=== PATIENT | female | born 1945 | race Caucasian/White ===

== ENCOUNTER → 2017-04-17 | Outpatient (CLI) | payer MEDICARE ==
[~2017-04-17] MED LIST: ATOR1TAB19 PO; CARV12.5 PO; CITRTAB15 PO; CLAR1CHW PO; FLAX100012 PO; FLUT1SPR2; FURO20TA2 PO; Fluticasone; LISI10TA4 PO; LORA-376 PO; METF500T PO; NUCY50TA9 PO; OMEP20TA PO; SYST1SOL OU; TAPENTADOL PO; TRAZ50TA4 PO; TYLE325T5 PO; VICKOIN5 TOP; VICKS; Vitamin D3 PO; XARE20TA PO; ZYLO300T4 PO
[2017-04-17 11:48] LABS: INR 1.18
[2017-04-17 12:13] LABS: MEAN CORPUSCULAR HEMOGLOBIN 29.2 pg (27.0-33.0); MEAN CORPUSCULAR HGB CONC 33.1 g/dl (32.0-36.5); MEAN CORPUSCULAR VOLUME 88.3 fl (80.0-96.0); RED CELL DISTRIBUTION WIDTH 14.4 % (11.5-14.5); WHITE BLOOD COUNT 6.6 K/mm3 (4.0-10.0)
--- NOTE | 2017-04-17 12:13 | REP ---
CHEST, TWO VIEWS: HISTORY: Sleep apnea. COMPARISON: 04/14/2014 The lungs are clear. The cardiac silhouette is enlarged. The pulmonary vasculature is normal in appearance. Degenerative change is present in the thoracic spine. A prosthetic heart valve and cardiac pacemaker are present. IMPRESSION: Cardiomegaly. Signed by Chris Patino MD 04/17/2017 12:31 P
[2017-04-17 12:22] LABS: ALBUMIN 4.5 GM/DL (3.2-5.2); ALBUMIN/GLOBULIN RATIO 1.18 (1.00-1.93); BILIRUBIN,TOTAL 0.5 MG/DL (0.2-1.0); CALCIUM LEVEL 9.7 MG/DL (8.8-10.2); CREATININE FOR GFR 1.04 MG/DL (0.55-1.02); GLOMERULAR FILTRATION RATE 55.9 (>45); POTASSIUM SERUM 4.4 MEQ/L (3.5-5.1); TOTAL PROTEIN 8.3 GM/DL (6.4-8.2)
--- NOTE | 2017-04-18 08:48 | ECGEPIP ---
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
== END ==
LOC: M ADMPAT 09:55
PROVIDERS: ATTEND Orthopaedic Surgery
DX: Z01.818 Encounter for other preprocedural examination (principal); M17.11 Unilateral primary osteoarthritis, right knee; I51.7 Cardiomegaly; I10 Essential (primary) hypertension; G47.30 Sleep apnea, unspecified; I48.91 Unspecified atrial fibrillation; E11.9 Type 2 diabetes mellitus without complications; K21.9 Gastro-esophageal reflux disease without esophagitis; Z88.0 Allergy status to penicillin; Z95.0 Presence of cardiac pacemaker; Z79.899 Other long term (current) drug therapy

== ENCOUNTER 2017-04-30 09:35 | Inpatient (IN) | payer MEDICARE ==
[2017-04-17 11:11] VITALS: BP 128/76
--- NOTE | 2017-04-27 16:42 | HPE ---
DATE OF PLANNED ADMISSION: 04/30/2017 ATTENDING PHYSICIAN: Garett Marques MD CHIEF COMPLAINT: Right knee pain. HISTORY OF PRESENT ILLNESS: This is a pleasant 71-year-old female with progressively worsening right knee pain and stiffness. She has failed to improve with conservative treatment. She elected for surgery for her continued symptoms. She has pain with weightbearing activities and her activities of daily living. X-rays of her knee are notable for advanced osteoarthritis of the right knee joint. She is consented for a right total knee arthroplasty by Dr. Garett Marques. Medical optimization was performed by Dr. Faust. ALLERGIES: PENICILLIN CURRENT MEDICATIONS: - Trazodone HCl 50 mg at bedtime as needed - tizanidine HCl 2 mg 1 capsule three times a day as needed - allopurinol 300 mg once a day - lorazepam 0.5 mg as needed every 6 hours - Claritin 10 mg a day - lisinopril 10 mg a day - Xarelto 20 mg a day - omeprazole 20 mg a day - Voltaren gel 1% transdermal - Bengay - metronidazole 1% applied to affected area externally once a day - metformin HCl 500 mg 1 tablet with meals orally twice a day - atorvastatin calcium 10 mg once a day PAST MEDICAL HISTORY: Includes cardiomegaly, rheumatic heart disease, atrial fibrillation, gastroesophageal reflux disease, osteoporosis, diabetes, gout, hypertension, anxiety, hyperlipoproteinemia, paroxysmal atrial fibrillation, type 2 diabetes mellitus with diabetic chronic kidney disease, stage III, microalbuminuria, primary insomnia. PAST SURGICAL HISTORY: Includes hysterectomy, cholecystectomy, radiofrequency ablation, insertion of pacemaker, right total hip replacement, heart valve repair. 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 FAMILY HISTORY: Noncontributory. REVIEW OF SYSTEMS: This patient denies chest pain, heart palpitations, cough, wheezing, difficulty breathing and shortness of breath. She denies abdominal pain, nausea, vomiting, diarrhea or constipation. She denies recent upper respiratory infection or urinary tract infection symptoms. She does complain of persistent pain in her right knee and pain with weightbearing activities in the right knee. PHYSICAL EXAMINATION: General: She is well-nourished, well-developed, in no acute distress, alert female patient. She ambulates with a moderate limp favoring her right lower extremity. She is not using assistive devices. Vital signs: 5 feet 2-1/2 inch tall, weighing 192.2 pounds with a temperature of 97.9, blood pressure 130/82, pulse of 80 and respirations of 18. Neck supple without adenopathy or jugular venous distension. There were no carotid bruits appreciated upon auscultation. Lungs were clear to auscultation without rales or wheeze throughout. Heart: Regular rate and rhythm. Abdomen: Bowel sounds were present. Extremities: Examination of the knee revealed intact skin. She had decreased range of motion secondary to pain and stiffness. The limb is neurovascularly intact. LABORATORY DATA: Chest x-ray showed cardiomegaly. EKG showed normal sinus rhythm with paced ventricular complexes at 85 beats a minute. Nasal and sinus cultures showed normal yfn. Urine culture showed no clinically significant growth. CBC was within normal limits. Sedimentation rate was 20. UA was within normal limits with a specific gravity of 1.013, glucose 82, BUN 19, creatinine 1.04, sodium 136, potassium 4.4. Protime 15.1, INR 1.18. IMPRESSION: Symptomatic osteoarthritis of the right knee joint. PLAN: Consented for a right total knee arthroplasty by Dr. Garett Marques.
[~2017-04-30] VITALS: Ht 157.5 cm; Wt 96.1 kg
[~2017-04-30 09:35] MED LIST changes: -LORA-376 PO; +LORA0.5T11 PO; -METF500T PO; +METF500T13 PO; +NUCY50TA6 PO; -NUCY50TA9 PO; +TRAZ50TA11 PO; -TRAZ50TA4 PO
[2017-04-30] MEDS ORDERED: LR 1,000 ML IV ONE (09:45)
[2017-04-30] MEDS ORDERED: LR 1,000 ML IV SCH ×3 (09:45→13:45)
[2017-04-30] MEDS ORDERED: CLINDAMYCIN 600 MG in APPROPRIATE DILUENT 1 EA IV ONE (10:00)
[2017-04-30] MEDS ORDERED: fentaNYL 100 MCG/2 ML INJECTION (J3010) As Ordered ONE ×3 (11:16→12:51)
[2017-04-30] MEDS ORDERED: MIDAZOLAM INJ 2 MG/2 ML VIAL (J2250) As Ordered ONE ×2 (11:16→12:51)
[2017-04-30] MEDS ORDERED: BUPIVACAINE HCL 0.25% 30 ML VIAL As Ordered ONE (11:22)
[2017-04-30] MEDS ORDERED: ceFAZolin 1GM INJ (J0690) As Ordered ONE (11:23)
[2017-04-30] MEDS ORDERED: TRANEXAMIC ACID 100 MG/ML 10ML VIAL As Ordered ONE (11:23)
[2017-04-30] MEDS ORDERED: EPINEPHrine INJ 1 MG/ML 1ML AMP As Ordered ONE (11:23)
--- NOTE | 2017-04-30 11:33 | IPN ---
DATE OF SERVICE: 04/30/2017 The patient seen and examined. She wished to go ahead with a right total knee arthroplasty. A preoperative clearance was obtained. She understands the nature of this, the risks of bleeding, infection, damage to nerves, vessels, persistent pain, blood clots, medical problems, , among others. She wished to proceed with a right knee replacement and understands the alternatives.
[2017-04-30] MEDS ORDERED: CLINDAMYCIN INJ 900MG/6ML VIAL As Ordered ONE (11:48)
[2017-04-30] MEDS ORDERED: MIDAZOLAM INJ 2 MG/2 ML VIAL (J2250) IV ONE (12:00)
[2017-04-30] MEDS ORDERED: fentaNYL 100 MCG/2 ML INJECTION (J3010) IV ONE (12:00)
[2017-04-30] MEDS ORDERED: PHENYLephrine HCL 500 MCG/5 ML (100MCG/ML) SYRINGE (J2370) As Ordered ONE (12:35)
[2017-04-30] MEDS ORDERED: LIDOCAINE 2% INJ 100 MG/5 ML SDV (FOR ANES.) As Ordered ONE (12:51)
[2017-04-30] MEDS ORDERED: PROPOFOL 200 MG/20 ML VIAL As Ordered ONE (12:51)
[2017-04-30] MEDS ORDERED: MORPHINE 1MG/ML IN 0.9% NACL 100ML IV BAG As Ordered ONE (13:29)
[2017-04-30] MEDS ORDERED: PERCOCET 5MG/325MG TAB PO PRN (13:45)
[2017-04-30] MEDS ORDERED: HYDROmorphone HCL 1 MG/ML SYRINGE (J1170) IV PRN (13:45)
[2017-04-30] MEDS ORDERED: fentaNYL 100 MCG/2 ML INJECTION (J3010) IV PRN (13:45)
[2017-04-30] MEDS ORDERED: FLEET ENEMA PR PRN (13:45)
[2017-04-30] MEDS ORDERED: ACETAMINOPHEN TAB 650MG DOSE (2X325MG) PO PRN (13:45)
[2017-04-30] MEDS ORDERED: ONDANSETRON 4MG/2ML VIAL (J2405) IV PRN ×3 (13:45→14:00)
[2017-04-30] MEDS ORDERED: MORPHINE 1MG/ML IN 0.9% NACL 100ML IV BAG IV PRN (14:00)
[2017-04-30] MEDS ORDERED: NALBUPHINE HCL 10 MG/ML AMP (J2300) IV PRN (14:00)
[2017-04-30] MEDS ORDERED: PATIENT IS CURRENTLY ON AN ON-Q PAIN BUSTER PAIN RELIEF SYSTEM XX SCH (14:00)
[2017-04-30] MEDS ORDERED: EPIDURAL/PCA KEYS XX PRN (14:00)
[2017-04-30] MEDS ORDERED: diphenhydrAMINE INJ 50MG/ML VIAL (J1200) IV PRN (14:00)
[2017-04-30] MEDS ORDERED: NALOXONE INJ 0.4 MG/1 ML VIAL (J2310) IV PRN (14:00)
[2017-04-30] MEDS ORDERED: LIDOCAINE 1% MDV 20ML VIAL ONE (14:01)
[2017-04-30] MEDS ORDERED: ROPIvacaine 0.5% 30 ML INJECTION (J2795) ONE (14:01)
[2017-04-30] MEDS ORDERED: dexameTHASONE 10 MG/1 ML VIAL PRES.FREE (J1100) ONE (14:01)
[2017-04-30 14:45] VITALS: BP 139/87
[2017-04-30 15:15] VITALS: BP 136/85
[2017-04-30 16:15] VITALS: BP 135/82
[2017-04-30 17:15] VITALS: BP 126/78
[2017-04-30] MEDS: RIVAROXABAN 20 MG TAB (XARELTO) PO SCH (17:45)
[2017-04-30 18:15] VITALS: BP 119/70
[2017-04-30] MEDS ORDERED: DEXTROSE 50% 50 ML SYRINGE IV PRN (18:45)
[2017-04-30] MEDS ORDERED: POLYVINYL ALCOHOL OPHTH SOLN 15 ML(LIQUITEARS) OU PRN (18:45)
[2017-04-30] MEDS ORDERED: FLUTICASONE PROP 0.05% NASAL SPRAY 16 GM (FLONASE) PRN (18:45)
[2017-04-30] MEDS ORDERED: OMEPRAZOLE 20 MG CAP PO PRN (18:45)
--- NOTE | 2017-04-30 21:06 | RO ---
DATE OF PROCEDURE: 04/30/2017 PREOPERATIVE DIAGNOSIS: Right knee osteoarthritis. POSTOPERATIVE DIAGNOSIS: Right knee osteoarthritis. PROCEDURE: Right total knee arthroplasty using a PFC rotating platform cruciate retaining size 3 femur, size 3 tibia, size 10 polyethylene, 35 patellar button. SURGEON: Dr. Garett Marques AUTOMOTIVE PARTS COORDINATOR: Ronald Mares ANESTHESIA: Spinal. ESTIMATED BLOOD LOSS: 50 mL. COMPLICATIONS: None. INDICATIONS: This is a 71-year woman who has had gradually worsening right knee pain with severe arthritis. She failed conservative management and wished to go ahead with surgical treatment. She understood the nature of the procedure, the risks of bleeding, infection, damage to nerves, vessels, persistent pain, wear, loosening, blood clots, medical problems, among others, and she understood the alternatives to knee replacement. DESCRIPTION OF PROCEDURE: The patient was taken to the operating room, placed in supine position after spinal anesthesia was induced. The right lower extremity was prepped and draped in the usual sterile fashion. A tourniquet was inflated. Time-out was performed. I then created a longitudinal incision over the anterior aspect of the knee, sharp dissection was carried down through subcutaneous tissue, controlled hemostasis with the cautery, performed a medial parapatellar arthrotomy and everted the patella, flexed the knee up. I then used the canal initiating reamer followed by the intramedullary guide on the femoral side set a 10 mm cut, 5 degrees of valgus. This was pinned in place by the junior assistant manager and then the distal femoral cut was made while I protected soft tissues. I then sized the femur to be a size 3, made the holes in the end of the femur with the external rotation guide and pinned the 4-in-[address]. The remaining four cuts were then made, protecting soft tissues. I then freed up the posterior cruciate ligament (PCL) and prepared the tibia. Tibial alignment guide was placed, the appropriate amount of posterior slope and valgus. This was pinned in place about 2 mm off the low side which is 10 mm off the high side. The external alignment guide was used to make sure that this was appropriate alignment and then the cut was made removing the bone, protecting soft tissues. We then used the financial services specialist to remove soft tissue and osteophytes from either side of the knee. The tibia was prepared with a size 3 tray, which was pinned in place. I then drilled, broached. Placed the trial polyethylene size 10 x 3, impacted in the femur and put the knee through range of motion. Excellent alignment and stability were noted. I was very pleased with the alignment and soft tissue balance. The patella was then freehand cut removing about 7 mm of bone. I then sized to be a 35. We then made the drill holes, placed the patellar button and put this through a range of motion. The patella tracked very nicely. Overall the components appeared excellent. We then drilled the end of the femur, removed the trial components, the junior assistant manager prepared the bone cement in the modern technique. We then irrigated and dried the bony surfaces, cemented on the tibial component, removed excess bone cement, placed the polyethylene, cemented on the femoral component and removed excess bone cement, and cemented on the polyethylene and held this in place as the cement hardened. I irrigated, put some TXA solution in and then we closed the deep layer after the cement had hardened with #1 Vicryl suture in an interrupted fashion. The remaining deep layer was closed in a watertight fashion using the Stratafix suture, single arm starting in the midpoint and working in each direction. Excellent closure was noted. We irrigated, closed the subcu with #2-0 Vicryl and the skin with jakob. The PainBuster catheter was inserted and primed through the superolateral aspect of the knee in the usual fashion. Sterile dressing was applied. Tourniquet had been deflated. She was taken to recovery room in stable condition. There were no known complications. The plan will be routine postop.
[2017-04-30] MEDS: LORATADINE 5 MG HALF-TAB PO SCH (21:31)
[2017-04-30] MEDS: ALLOPURINOL 300 MG TAB PO SCH (21:32)
[2017-04-30] MEDS: CLINDAMYCIN 600 MG in APPROPRIATE DILUENT 1 EA IV SCH (21:33)
[2017-04-30] MEDS: ATORVASTATIN 10 MG TAB PO SCH (21:34)
[2017-04-30] MEDS: LORazepam 0.5 MG TAB PO SCH (21:34)
[2017-04-30] MEDS: HumaLOG INSULIN (NovoLOG) PER UNIT SC SCH (21:46)
[2017-04-30 22:00] VITALS: BP 132/65
[2017-05-01 02:00] VITALS: BP 122/72
--- NOTE | 2017-05-01 02:00 | CR ---
DATE OF CONSULTATION: 04/30/2017 MUSHROOM FARMER: Dr. Marques. PRIMARY CARE PROVIDER: NELIA Ac. CHIEF COMPLAINT: Right knee pain. HISTORY OF PRESENT ILLNESS: Patient is a 71-year-old female with history of osteoarthritis of the knee. She is status post right knee arthroplasty performed by Dr. Marques, which she tolerated appropriately. I am being consulted for medical management of her hypertension, diabetes and heart disease. Patient's only complaint is mild pain of the right knee. She denies chest pain, shortness of breath, fever, chills, nausea, vomiting, diarrhea or constipation, headache, blurry vision. REVIEW OF SYSTEMS: 10-point systems assessed are negative except listed above in history of present illness (HPI). PAST MEDICAL HISTORY: Includes: 1. Hypertension. 2. Ajx-inxieoy-sbukdujoj diabetes mellitus. 3. Gout. 4. Rheumatic heart disease. 5. Atrial fibrillation on Coumadin. 6. Gastroesophageal reflux disease (GERD). 7. Osteoporosis. 8. Anxiety. 9. Dyslipidemia. 10. Chronic kidney disease stage III. 11. Cardiomegaly. PAST SURGICAL HISTORY: Includes: 1. Hysterectomy. 2. Cholecystectomy. 3. Radio frequency ablation. 4. Insertion of pacemaker. 5. Right total hip replacement. 6. Right valve repair. FAMILY HISTORY: Noncontributory. SOCIAL HISTORY: She never smoked. Denies alcohol abuse or illicit drug use. She is and lives with her and two pets, a dog and a cat. 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 ALLERGIES TO MEDICATIONS: Include PENICILLIN, RISPERIDONE and TRAMADOL. LIST OF MEDICATIONS: Includes: - trazodone 50 mg at bedtime - allopurinol 300 mg once a day - lorazepam 0.5 mg every 6 hours as needed for anxiety - Claritin 10 mg once a day - tizanidine 2 mg capsules three times a day as needed - lisinopril 10 mg once a day - Xarelto 20 mg once daily - omeprazole 20 mg once a day - Voltaren gel - Bengay - metformin 500 mg twice a day with meals - atorvastatin 10 mg once daily PHYSICAL EXAMINATION: VITAL SIGNS: Blood pressure 119/70, pulse 95, respiratory rate 18, oxygen saturation 97% on 2 liters of oxygen, temperature 98.5 degrees Fahrenheit. GENERAL: Patient is alert, oriented to person, place, time, and circumstance. She is in no distress. HEENT: Pupils are equal, round and reactive to light. Extraocular muscles are intact. Anicteric sclerae. Mucous membranes moist. Neck is supple, nontender to palpation with no adenopathy. CARDIOVASCULAR SYSTEM: S1, S2 present. Rate is irregular. RESPIRATORY SYSTEM: Lungs are clear to auscultation bilaterally. GASTROINTESTINAL: Abdomen is soft, nontender, nondistended. Bowel sounds are normal. MUSCULOSKELETAL SYSTEM: No edema, cyanosis. Right knee is wrapped in a Band-Aid. Patient has decreased range of motion on the right leg. The Band-Aid is clean and dry. SKIN: War, dry without rash. NEUROLOGIC: Nonfocal findings. LABORATORIES: Still pending. ASSESSMENT: Includes: 1. Right knee pain. 2. Ohh-pqctdde-qisthskis diabetes mellitus. 3. History of hypertension, stable. 4. History of anxiety, stable. 5. History of gastroesophageal reflux disease (GERD). 6. History of atrial fibrillation, stable heart rate. PLAN: Will monitor patient's fingersticks before food, nightly, cover with sliding-scale insulin. Holding metformin for now until patient is discharged. Resume the needed home medications. Thank you for considering us for co-management of this patient.
[2017-05-01] MEDS: CLINDAMYCIN 600 MG in APPROPRIATE DILUENT 1 EA IV SCH (04:09)
[2017-05-01 06:00] VITALS: BP 125/71
[2017-05-01 06:29] LABS: MEAN CORPUSCULAR HEMOGLOBIN 29.3 pg (27.0-33.0); MEAN CORPUSCULAR HGB CONC 32.5 g/dl (32.0-36.5); MEAN CORPUSCULAR VOLUME 90.4 fl (80.0-96.0); RED CELL DISTRIBUTION WIDTH 14.4 % (11.5-14.5); WHITE BLOOD COUNT 13.9 K/mm3 (4.0-10.0)
[2017-05-01] MEDS ORDERED: PERCOCET 5MG/325MG TAB PO PRN (06:45)
[2017-05-01] MEDS ORDERED: ONDANSETRON 4 MG TAB (S0181) PO PRN (06:45)
[2017-05-01] MEDS: HumaLOG INSULIN (NovoLOG) PER UNIT SC SCH ×4 (08:06→21:00)
[2017-05-01] MEDS: PERCOCET 5MG/325MG TAB PO PRN ×4 (08:08→20:07)
--- NOTE | 2017-05-01 08:56 | REP ---
Clinical: Status post knee replacement. Technique AP and cross-table lateral views. Findings: The patient is status post right knee replacement with normal positioning and appearance to the femoral and tibial components. Overlying postsurgical changes appreciated. Impression: Status post right knee replacement. Signed by Mayur Tellez MD 05/01/2017 08:47 A
[2017-05-01] MEDS: LISINOPRIL 10 MG TAB PO SCH (09:19)
[2017-05-01] MEDS: FUROSEMIDE 20 MG TAB PO SCH (09:19)
[2017-05-01] MEDS: MOM 30ML SUSPENSION UDC PO SCH (09:20)
[2017-05-01] MEDS: MIRALAX *UNIT DOSE* 17GM PACKET PO SCH (09:20)
[2017-05-01] MEDS: ALLOPURINOL 300 MG TAB PO SCH (09:20)
[2017-05-01] MEDS: SENOKOT S TAB PO SCH ×2 (09:20→20:06)
[2017-05-01] MEDS: LORATADINE 5 MG HALF-TAB PO SCH (09:20)
[2017-05-01 09:45] LABS: CALCIUM LEVEL 8.3 MG/DL (8.8-10.2); CREATININE FOR GFR 1.02 MG/DL (0.55-1.02); GLOMERULAR FILTRATION RATE 57.2 (>45); POTASSIUM SERUM 4.3 MEQ/L (3.5-5.1)
[2017-05-01 14:00] VITALS: BP 124/76
--- NOTE | 2017-05-01 15:30 | IPNPDOC ---
Subjective Date Seen The patient was seen on 05/01/17. Subjective Chief Complaint/HPI The patient is a 71-year-old female admitted with a reason for visit of Right Knee Arthritis. General: Denies: Chills, Night Sweats Constitutional: Denies: Chills, Fever Eyes: Denies: Pain, Vision change ENT: Denies: Head Aches, Ear Pain Skin: Denies: Rash, Lesions Pulmonary: Denies: Dyspnea, Cough Cardiovascular: Denies: Chest Pain, Palpitations Gastrointestinal: Denies: Nausea, Vomiting Genitourinary: Denies: Dysuria, Frequency Hematologic: Denies: Bruising, Bleeding Excessively Objective Physical Examination General Exam: Positive: Alert, Cooperative, No Acute Distress ENT Exam: Positive: Atraumatic, Mucous membr. moist/pink Neck Exam: Negative: JVD Chest Exam: Positive: Clear to auscultation, Normal air movement Heart Exam: Positive: Rate Normal, Normal S1, Normal S2 Abdomen Exam: Positive: Soft, Negative: Tenderness Extremity Exam: Positive: Other (right knee noted to be wrapped in surgical dressing, range of motion limited secondary to recent surgery, neurovascularly intact distally) Neuro Exam: Positive: Strength at 5/5 X4 ext Assessment /Plan Plan/VTE VTE Prophylaxis Ordered?: Yes Plan Status post right knee replacement Pain management as per primary team History of atrial fibrillation rate, controlled Continue Xarelto Hypertension, stable Continue lisinopril, Lasix Dyslipidemia Continue statin GERD Continue PPI Diabetes mellitus Insulin sliding scale Gout continue allopurinol VS, I&O, 24H, Fishbone Vital Signs/I&O Vital Signs Date Time Temp Pulse Resp B/P (MAP) Pulse Ox O2 Delivery O2 Flow Rate FiO2 05/01/17 13:31 16 05/01/17 09:19 126/58 05/01/17 08:00 96 Room Air 05/01/17 06:00 97.8 97 2.0 I&O- Last 24 Hours up to 6 AM 05/01/17 06:00 Intake Total 3220 ml Output Total 1250 ml Balance 1970 ml Laboratory Data 24H LABS Laboratory Tests 2 05/01/17 08:36: Anion Gap 5L, Glomerular Filtration Rate 57.2, Blood Urea Nitrogen 20H, Creatinine 1.02, Sodium Level 141, Potassium Level 4.3, Chloride Level 109H, Carbon Dioxide Level 27, Calcium Level 8.3L CBC/BMP Laboratory Tests 05/01/17 06:15 Red Blood Count 3.83 L, Mean Corpuscular Volume 90.4, Mean Corpuscular Hemoglobin 29.3, Mean Corpuscular Hemoglobin Concent 32.5, Red Cell Distribution Width 14.4 05/01/17 08:36 Calcium Level 8.3 L ASHLEY SANCHEZ MD May 01, 2017 15:30
[2017-05-01] MEDS: RIVAROXABAN 20 MG TAB (XARELTO) PO SCH (17:28)
[2017-05-01] MEDS ORDERED: RIVAROXABAN 20 MG TAB (XARELTO) PO SCH (18:00)
[2017-05-01] MEDS: ATORVASTATIN 10 MG TAB PO SCH (20:06)
[2017-05-01 22:00] VITALS: BP 161/65
[2017-05-01] MEDS: LORazepam 0.5 MG TAB PO SCH (22:11)
[2017-05-02] MEDS: PERCOCET 5MG/325MG TAB PO PRN ×4 (00:08→17:50)
[2017-05-02] MEDS ORDERED: MORPHINE 2 MG/ML 1ML SYRINGE IV ONE (02:00)
[2017-05-02 06:00] VITALS: BP 153/80
[2017-05-02 06:36] LABS: MEAN CORPUSCULAR HEMOGLOBIN 28.4 pg (27.0-33.0); MEAN CORPUSCULAR HGB CONC 31.9 g/dl (32.0-36.5); MEAN CORPUSCULAR VOLUME 88.9 fl (80.0-96.0); RED CELL DISTRIBUTION WIDTH 14.8 % (11.5-14.5); WHITE BLOOD COUNT 5.9 K/mm3 (4.0-10.0)
[2017-05-02] MEDS ORDERED: diphenhydrAMINE 25 MG CAP PO PRN (07:00)
[2017-05-02] MEDS: HumaLOG INSULIN (NovoLOG) PER UNIT SC SCH ×4 (07:30→20:53)
[2017-05-02] MEDS: MORPHINE 15 MG SA TAB PO SCH ×2 (08:41→20:54)
[2017-05-02] MEDS ORDERED: CelecoXIB (CeleBREX) 100 MG CAP PO ONE (08:45)
[2017-05-02] MEDS: ALLOPURINOL 300 MG TAB PO SCH (08:47)
[2017-05-02] MEDS: LISINOPRIL 10 MG TAB PO SCH (08:49)
[2017-05-02] MEDS: LORATADINE 5 MG HALF-TAB PO SCH (08:49)
[2017-05-02] MEDS ORDERED: PNEUMOCOCCAL VACCINE 0.5ML SYRINGE(90732) PNEUMOVAX 23 IM ONE (09:00)
[2017-05-02 09:24] VITALS: BP 124/67
[2017-05-02] MEDS: MIRALAX *UNIT DOSE* 17GM PACKET PO SCH (10:14)
[2017-05-02] MEDS: MOM 30ML SUSPENSION UDC PO SCH (10:14)
[2017-05-02] MEDS: SENOKOT S TAB PO SCH ×2 (10:14→20:52)
--- NOTE | 2017-05-02 11:21 | IPNPDOC ---
Subjective Date Seen The patient was seen on 05/02/17. Subjective Chief Complaint/HPI The patient is a 71-year-old female admitted with a reason for visit of Right Knee Arthritis. General: Denies: Chills, Night Sweats Constitutional: Denies: Chills, Fever Eyes: Denies: Pain, Vision change ENT: Denies: Head Aches, Ear Pain Skin: Denies: Rash, Lesions Pulmonary: Denies: Dyspnea, Cough Cardiovascular: Denies: Chest Pain, Palpitations Gastrointestinal: Denies: Nausea, Vomiting Genitourinary: Denies: Dysuria, Frequency Hematologic: Denies: Bruising, Bleeding Excessively Objective Physical Examination General Exam: Positive: Alert, Cooperative, No Acute Distress ENT Exam: Positive: Atraumatic, Mucous membr. moist/pink Neck Exam: Negative: JVD Chest Exam: Positive: Clear to auscultation, Normal air movement Heart Exam: Positive: Rate Normal, Normal S1, Normal S2 Abdomen Exam: Positive: Soft, Negative: Tenderness Extremity Exam: Positive: Other (right knee noted to be wrapped in surgical dressing, range of motion limited secondary to recent surgery, neurovascularly intact distally) Neuro Exam: Positive: Strength at 5/5 X4 ext Assessment /Plan Plan/VTE VTE Prophylaxis Ordered?: Yes Plan Status post right knee replacement Pain management as per primary team History of atrial fibrillation rate, controlled Continue Xarelto Hypertension, stable Continue lisinopril, Lasix Dyslipidemia Continue statin GERD Continue PPI Diabetes mellitus Insulin sliding scale Gout continue allopurinol VS, I&O, 24H, Fishbone Vital Signs/I&O Vital Signs Date Time Temp Pulse Resp B/P (MAP) Pulse Ox O2 Delivery O2 Flow Rate FiO2 05/02/17 09:24 99.7 88 14 124/67 (86) 97 Room Air 05/01/17 06:00 2.0 I&O- Last 24 Hours up to 6 AM 05/02/17 06:00 Intake Total 600 ml Output Total 900 ml Balance -300 ml Laboratory Data 24H LABS Laboratory Tests 2 05/01/17 12:00: Bedside Glucose (Misc Panel) 97 05/01/17 16:55: Bedside Glucose (Misc Panel) 114 CBC/BMP Laboratory Tests 05/02/17 06:09 Red Blood Count 3.76 L, Mean Corpuscular Volume 88.9, Mean Corpuscular Hemoglobin 28.4, Mean Corpuscular Hemoglobin Concent 31.9 L, Red Cell Distribution Width 14.8 H ASHLEY SANCHEZ MD May 02, 2017 11:21
[2017-05-02 14:00] VITALS: BP 126/71
[2017-05-02] MEDS: RIVAROXABAN 20 MG TAB (XARELTO) PO SCH (17:52)
[2017-05-02] MEDS: ATORVASTATIN 10 MG TAB PO SCH (20:52)
[2017-05-02] MEDS: LORazepam 0.5 MG TAB PO SCH (20:52)
[2017-05-02] MEDS ORDERED: NORTRIPTYLINE 10 MG CAP PO SCH (21:00)
[2017-05-02 22:00] VITALS: BP 119/65
[2017-05-03] MEDS: PERCOCET 5MG/325MG TAB PO PRN ×3 (04:43→14:00)
[2017-05-03 06:00] VITALS: BP 117/61
[2017-05-03] MEDS: HumaLOG INSULIN (NovoLOG) PER UNIT SC SCH ×2 (07:30→12:19)
[2017-05-03] MEDS ORDERED: PERC5TAB12 PO (08:20)
[2017-05-03] MEDS ORDERED: MORP15TASA PO (08:20)
[2017-05-03] MEDS: MOM 30ML SUSPENSION UDC PO SCH (08:44)
[2017-05-03] MEDS: MIRALAX *UNIT DOSE* 17GM PACKET PO SCH (08:44)
[2017-05-03] MEDS: MORPHINE 15 MG SA TAB PO SCH (08:45)
[2017-05-03 08:46] VITALS: BP 117/61
[2017-05-03] MEDS: LISINOPRIL 10 MG TAB PO SCH (08:46)
[2017-05-03] MEDS: FUROSEMIDE 20 MG TAB PO SCH (08:46)
[2017-05-03] MEDS: LORATADINE 5 MG HALF-TAB PO SCH (08:46)
[2017-05-03] MEDS: SENOKOT S TAB PO SCH (08:46)
[2017-05-03] MEDS: ALLOPURINOL 300 MG TAB PO SCH (08:46)
--- NOTE | 2017-05-03 11:40 | IPNPDOC ---
Subjective Date Seen The patient was seen on 05/03/17. Subjective Chief Complaint/HPI The patient is a 71-year-old female admitted with a reason for visit of Right Knee Arthritis. General: Denies: Chills, Night Sweats Constitutional: Denies: Chills, Fever Eyes: Denies: Pain, Vision change ENT: Denies: Head Aches, Ear Pain Skin: Denies: Rash, Lesions Pulmonary: Denies: Dyspnea, Cough Cardiovascular: Denies: Chest Pain, Palpitations Gastrointestinal: Denies: Nausea, Vomiting, Abdominal Pain Genitourinary: Denies: Dysuria, Frequency Hematologic: Denies: Bruising, Bleeding Excessively Objective Physical Examination General Exam: Positive: Alert, Cooperative, No Acute Distress ENT Exam: Positive: Atraumatic, Mucous membr. moist/pink Neck Exam: Negative: JVD Chest Exam: Positive: Clear to auscultation, Normal air movement Heart Exam: Positive: Rate Normal, Normal S1, Normal S2 Abdomen Exam: Positive: Soft, Negative: Tenderness Extremity Exam: Positive: Other (right knee noted to be wrapped in surgical dressing, range of motion limited secondary to recent surgery, neurovascularly intact distally) Neuro Exam: Positive: Strength at 5/5 X4 ext Assessment /Plan Plan/VTE VTE Prophylaxis Ordered?: Yes Plan Status post right knee replacement Pain management as per primary team History of atrial fibrillation rate, controlled Continue Xarelto Hypertension, stable Continue lisinopril, Lasix Dyslipidemia Continue statin GERD Continue PPI Diabetes mellitus Insulin sliding scale Gout continue allopurinol VS, I&O, 24H, Fishbone Vital Signs/I&O Vital Signs Date Time Temp Pulse Resp B/P (MAP) Pulse Ox O2 Delivery O2 Flow Rate FiO2 05/03/17 10:17 18 05/03/17 10:17 96 Room Air 05/03/17 08:46 117/61 05/03/17 06:00 97.6 86 05/01/17 06:00 2.0 I&O- Last 24 Hours up to 6 AM 05/03/17 06:00 Intake Total 1500 ml Output Total 3010 ml Balance -1510 ml Laboratory Data 24H LABS Laboratory Tests 2 05/02/17 11:50: Bedside Glucose (Misc Panel) 104 05/02/17 16:52: Bedside Glucose (Misc Panel) 109 05/02/17 20:44: Bedside Glucose (Misc Panel) 123H 7/2/17 05:48: Bedside Glucose (Misc Panel) 101 ASHLEY SANCHEZ MD May 03, 2017 11:40
[2017-05-03] MEDS ORDERED: ROPIvacaine 0.5% 30 ML INJECTION (J2795) ONE (14:44)
[2017-05-03] MEDS ORDERED: dexameTHASONE 10 MG/1 ML VIAL PRES.FREE (J1100) ONE (14:44)
[2017-05-03] MEDS ORDERED: LIDOCAINE 1% MDV 20ML VIAL ONE (14:44)
--- NOTE | 2017-05-06 09:33 | DSES ---
DATE OF ADMISSION: 04/30/2017 DATE OF DISCHARGE: 05/03/2017 ADMITTING DIAGNOSIS: Symptomatic right knee osteoarthritis. DISCHARGE DIAGNOSIS: Status post right total knee arthroplasty. HISTORY OF PRESENT ILLNESS: This is a pleasant 71-year-old female with continuing symptomatic right knee osteoarthritis. She has consented for a right total knee arthroplasty per Dr. Garett Marques. Medical optimization per Dr. Shelton. X-rays are consistent with advanced osteoarthritis. OPERATION PERFORMED: Right total knee arthroplasty. HOSPITAL COURSE: The patient underwent right total knee arthroplasty under spinal anesthesia on 04/30/2017, uneventfully, and was returned to recovery comfortable. Our hospital team decided to discharge the patient on 05/03/2017 with the following instructions. Weight bearing as tolerated right lower extremity with walker. Thromboembolic deterrent (JENNIFER) stockings times 30 days and deep vein thrombosis (DVT) prophylaxis per instruction. Diet regular. Percocet as needed pain. Optifoam dressing change in 4-7 days time. Followup at [facility] ([facility] [place]) 12-14 days for wound check, staple removal. The patient is encouraged to contact our office sooner with increased pain, numbness or tingling down the lower extremity, redness, drainage, bleeding, fever greater than 101 or further concerns. SAUL
== END 2017-05-03 14:45 | disposition home health service (06) | DRG 470 ==
LOC: M OR 09:35 → M MS5PR 14:35
PROVIDERS: ADMIT Orthopaedic Surgery; ATTEND Orthopaedic Surgery
PROC: 0SRC0J9 Replacement of Right Knee Joint with Synthetic Substitute, Cemented, Open Approach (ICD-10-PCS; principal; 2017-04-30 12:15)
DX: M17.11 Unilateral primary osteoarthritis, right knee (principal); I48.0 Paroxysmal atrial fibrillation; K21.9 Gastro-esophageal reflux disease without esophagitis; M81.0 Age-related osteoporosis without current pathological fracture; E11.22 Type 2 diabetes mellitus with diabetic chronic kidney disease; I12.9 Hypertensive chronic kidney disease with stage 1 through stage 4 chronic kidney disease, or unspecified chronic kidney disease; F41.9 Anxiety disorder, unspecified; M10.9 Gout, unspecified; G47.00 Insomnia, unspecified; N18.3 Chronic kidney disease, stage 3 (moderate); I51.7 Cardiomegaly; Z79.84 Long term (current) use of oral hypoglycemic drugs; Z79.01 Long term (current) use of anticoagulants; Z79.899 Other long term (current) drug therapy; Z88.0 Allergy status to penicillin; Z96.641 Presence of right artificial hip joint; Z95.0 Presence of cardiac pacemaker; Z88.8 Allergy status to other drugs, medicaments and biological substances

== ENCOUNTER → 2018-04-14 | Outpatient (CLI) | payer MEDICARE | LOC: M RAD 13:48 | DX: M51.36 Other intervertebral disc degeneration, lumbar region (principal); M48.061 Spinal stenosis, lumbar region without neurogenic claudication | CPT/HCPCS: 72131 ==

== ENCOUNTER → 2018-04-21 | Outpatient (REF) | payer MEDICARE ==
[2018-04-21 16:09] LABS: INR 1.04; PROTHROMBIN TIME 13.7 SECONDS (12.4-14.5)
== END ==
LOC: M LABDRAW1 14:04
DX: Z79.01 Long term (current) use of anticoagulants (principal)
CPT/HCPCS: 85610

== ENCOUNTER → 2019-04-18 | Outpatient (CLI) | payer MEDICARE ==
[~2019-04-18] MED LIST changes: -CLAR1CHW PO; +CLAR1CHW2 PO; +MORP15TASA PO; +NUCY50TA19 PO; -NUCY50TA6 PO; +PERC5TAB12 PO; +TRAZ-252 PO; -TRAZ50TA11 PO; -ZYLO300T4 PO; +ZYLO300T6 PO
[2019-04-18 09:40] LABS: HEMOGLOBIN 13.8 g/dl (12.0-15.5); MEAN CORPUSCULAR HEMOGLOBIN 28.8 pg (27.0-33.0); MEAN CORPUSCULAR HGB CONC 32.1 g/dl (32.0-36.5); MEAN CORPUSCULAR VOLUME 89.8 fl (80.0-96.0); PLATELET COUNT, AUTOMATED 281 10^3/uL (150-450); RED BLOOD COUNT 4.79 10^6/uL (4.00-5.40); WHITE BLOOD COUNT 7.9 10^3/uL (4.0-10.0)
[2019-04-18 09:47] LABS: INR 1.36
[2019-04-18 09:57] LABS: ALT/SGPT 31 U/L (12-78); BILIRUBIN,TOTAL 0.3 MG/DL (0.2-1.0); BLOOD UREA NITROGEN 22 MG/DL (7-18); CALCIUM LEVEL 9.5 MG/DL (8.8-10.2); CARBON DIOXIDE LEVEL 24 MEQ/L (21-32); CHLORIDE LEVEL 105 MEQ/L (98-107); CREATININE FOR GFR 0.86 MG/DL (0.55-1.30); GLOMERULAR FILTRATION RATE > 60.0 (>39); GLUCOSE, FASTING 89 MG/DL (70-100); POTASSIUM SERUM 4.4 MEQ/L (3.5-5.1); SODIUM LEVEL 137 MEQ/L (136-145)
--- NOTE | 2019-04-18 10:04 | REP ---
CHEST X-RAY: Two views. HISTORY: Preop. Left hip arthritis. COMPARISON STUDY: April 17, 2017. FINDINGS: A multi-lead pacemaker remains in the right heart via the left side. The patient is status post cardiac valve replacement. The heart is borderline in size. Cardiothoracic ratio measures 52.3%. Pulmonary vasculature is not increased. Pleural angles are sharp. No infiltrate is seen. There are advanced degenerative changes in the shoulders. Degenerative disc changes are noted in the thoracic spine. There are clips in right upper quadrant. IMPRESSION: Cardiomegaly with pacemaker and cardiac valve replacement. Advanced osteoarthritis of the shoulders. Otherwise no acute disease. Electronically Signed by Venkatesh Tan MD 04/18/2019 10:27 A
[2019-04-18 10:06] LABS: ERYTHROCYTE SEDIMENTATION RATE 36 mm/hr (0-30)
--- NOTE | 2019-04-18 13:12 | ECGEPIP ---
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
== END ==
LOC: M LAB 08:09
PROVIDERS: ATTEND Orthopaedic Surgery
DX: Z01.818 Encounter for other preprocedural examination (principal); M16.12 Unilateral primary osteoarthritis, left hip; Z95.0 Presence of cardiac pacemaker

== ENCOUNTER → 2019-04-26 | Outpatient (REF) | payer MEDICARE ==
[~2019-04-26] MED LIST changes: +BENGGEL2 TOP; +BIOT50004 PO; +DICL1GEL3 TOP; +METR1GEL4 EX; +MULTCAP PO; +NYST50SS SS; +ORPH100T2 PO; +TYLE650T38 PO; +VITA200021 PO
== END ==
LOC: M SFHCLERA 12:10
PROVIDERS: ATTEND Physician Assistant
DX: J02.9 Acute pharyngitis, unspecified (principal)
CPT/HCPCS: 87070; 87880; G0463

== ENCOUNTER 2019-05-18 06:32 | Inpatient (IN) | payer MEDICARE ==
--- NOTE | 2019-05-16 16:28 | HPE ---
DATE OF ADMISSION: 05/18/2019 CHIEF COMPLAINT: Left hip pain. HISTORY OF PRESENT ILLNESS: Farrah is a pleasant, 73-year-old female with progressively worsening left hip pain and stiffness. She has failed to improve with conservative treatment. She has elected for surgery for her continued symptoms. She has pain with weightbearing activities and her activities of daily living. X-rays of her hip are notable for advanced osteoarthritis of the left hip joint. She has consented for a left total hip arthroplasty by Dr. Garett Marques. Medical optimization was performed by Dr. Shelton. ALLERGIES: PENICILLIN. CURRENT MEDICATIONS: - metformin 500 mg twice a day - allopurinol 300 mg every day - lisinopril 20 mg a day - lorazepam 0.5 mg one by mouth once a day as needed - Lasix 20 mg every day as directed - orphenadrine citrate 100 mg one by mouth every 12 hours - Systane 0.4-0.3% 1 drop in both eyes every night at bedtime - Tylenol 8 hours 650 mg as needed - Biotin 5000 mcg once a day - flaxseed oil 1000 mg twice a day - Centrum daily multivitamin - vitamin D3 super strength one every day - Citracal Max 315/250 mg every day - Flonase 50 mcg per actuation 2 sprays per nostril once a day - Tylenol #3 as needed - enoxaparin sodium 150 mg/mL inject 100 mg every 24 hours to the affected area as directed 1 gram three times a day PAST MEDICAL HISTORY: Includes high blood pressure, diabetes, and heart disease. PAST SURGICAL HISTORY: Includes gallbladder removal, total hysterectomy, right hip replacement and knee replacement. SOCIAL HISTORY: This patient is retired. Does not smoke. Does not drink alcohol. FAMILY HISTORY: Noncontributory. REVIEW OF SYSTEMS: This patient denies chest pain, heart palpitations, cough, wheezing, difficulty breathing, and shortness of breath. Denies abdominal pain, nausea, vomiting, diarrhea, or constipation. She denies recent upper respiratory infection or urinary tract infection symptoms. She does complain of persistent pain in the left hip. PHYSICAL EXAM: General: She is a well-nourished, well-developed, in no acute distress, alert female patient. She ambulates with a moderate limp favoring her left lower extremity. She is not using assistive devices. Vital signs: She is 63 inches tall, weighs 190.6 pounds with a temperature of 98.2, blood pressure 132/60, pulse of 77, and respirations of 14. Neck was supple without adenopathy or jugular venous distension. Lungs were clear to auscultation without rales or wheeze. Heart: Regular rate and rhythm. Abdomen: Bowel sounds were present. Extremities: Examination of the hip revealed intact skin. The patient had decreased range of motion secondary to pain and stiffness. The leg was neurovascularly intact. LABORATORY DATA: Chest x-ray showed cardiomegaly with pacemaker and cardiac valve replacement. Otherwise, no acute disease. EKG showed normal sinus rhythm with paced ventricular complexes at 79 beats per minute. ProTime was 17.0, INR 1.36. Glucose 189. BUN 22, creatinine 0.86. Sodium 137, potassium 4.4. CBC was within normal limits. Sed rate was elevated at 36. IMPRESSION: Symptomatic osteoarthritis of the left hip joint. PLAN: Consented for a left total hip arthroplasty by Dr. Garett Marques.
[2019-05-18] VITALS (7 sets, daily range): BP systolic 91–136; BP diastolic 60–71
[~2019-05-18] VITALS: Ht 162.6 cm; Wt 89.7 kg
[~2019-05-18 06:32] MED LIST changes: +ACETAMINOPHEN 1000MG 100ML IV BTL (OFIRMEV) (J0131 PER 10MG) As Ordered ONE; +LIDOCAINE 2% INJ 100 MG/5 ML SDV (FOR ANES.) As Ordered ONE; +MIDAZOLAM INJ 2 MG/2 ML VIAL (J2250) As Ordered ONE; +PROPOFOL 200 MG/20 ML VIAL As Ordered ONE; +fentaNYL 100 MCG/2 ML INJECTION (J3010) As Ordered ONE
[2019-05-18] MEDS ORDERED: TRANEXAMIC ACID 100 MG/ML 10ML VIAL As Ordered ONE (06:55)
[2019-05-18] MEDS ORDERED: BUPIVACAINE LIPOSOME/PF 1.3% 20ML VIAL (13.3MG/ML)(EXPAREL)(C9290 PER1MG) As Ordered ONE (06:56)
[2019-05-18] MEDS ORDERED: EPINEPHrine INJ 1 MG/ML 1ML AMP As Ordered ONE (06:56)
[2019-05-18] MEDS ORDERED: CLINDAMYCIN INJ 900MG/6ML VIAL As Ordered ONE (06:56)
[2019-05-18] MEDS ORDERED: CLINDAMYCIN 900 MG/50 ML PREMIX BAG As Ordered ONE (07:08)
[2019-05-18] MEDS ORDERED: CLINDAMYCIN 900 MG in APPROPRIATE DILUENT 1 EA IV ONE (07:30)
[2019-05-18] MEDS ORDERED: LR 1,000 ML IV SCH ×2 (07:30→09:45)
--- NOTE | 2019-05-18 07:44 | IPN ---
DATE: 05/18/2019 The patient was seen and examined. She wished to go ahead with a left total hip arthroplasty. She has been through this before on the right. She knows the nature of procedure, the risks of bleeding, infection, damage to nerves, vessels, persistent pain, wear loosening, dislocation, leg length inequality, blood clots, medical problems, among others. She has had a preop medical evaluation. She understands we will be using likely a different type stem then the other side but overall very similar.
[2019-05-18] MEDS ORDERED: fentaNYL 100 MCG/2 ML INJECTION (J3010) As Ordered ONE (09:27)
[2019-05-18] MEDS: fentaNYL 100 MCG/2 ML INJECTION (J3010) IV PRN ×4 (09:31→10:45)
[2019-05-18] MEDS ORDERED: oxyCODONE 5MG TAB As Ordered ONE (09:44)
[2019-05-18] MEDS ORDERED: HYDROMORPHONE HCL 0.5 MG/ 0.5 ML SYRINGE (J1170 PER 1) IV PRN (09:45)
[2019-05-18] MEDS ORDERED: ONDANSETRON 4MG/2ML VIAL (J2405) IV PRN ×2 (09:45)
[2019-05-18] MEDS ORDERED: PERCOCET 5MG/325MG TAB PO PRN (09:45)
[2019-05-18] MEDS ORDERED: FLEET ENEMA PR PRN (09:45)
[2019-05-18] MEDS ORDERED: MORPHINE 4 MG/ML 1ML VIAL/SYRINGE (J2270) IV PRN (09:45)
[2019-05-18] MEDS ORDERED: ACETAMINOPHEN TAB 650MG DOSE (2X325MG) PO PRN (09:45)
[2019-05-18] MEDS: oxyCODONE 5MG TAB PO PRN ×2 (10:17→11:41)
--- NOTE | 2019-05-18 10:46 | REP ---
LEFT HIP, FOUR VIEWS: Four views of the left hip are performed including AP and crosstable lateral views. There is a total hip prosthesis which appears to be in good position. Osseous structures are intact. The structures are well aligned. Metallic skin jakob are noted. Electronically Signed by Jon Christie MD 05/20/2019 12:55 P
[2019-05-18] MEDS ORDERED: ePHEDrine SULFATE 25 MG/5 ML(5MG/ML) SYRINGE As Ordered ONE (11:31)
[2019-05-18] MEDS ORDERED: PHENYLephrine HCL 500 MCG/5 ML (100MCG/ML) SYRINGE (J2370) As Ordered ONE (11:31)
[2019-05-18] MEDS ORDERED: KETAMINE HCL 200 MG/20 ML VIAL As Ordered ONE (12:19)
--- NOTE | 2019-05-18 13:29 | REP ---
CROSS-TABLE LATERAL VIEWS OF THE LEFT HIP: Two cross-table views of the left hip are performed. There is a total hip prosthesis which appears to be in good position. The structures are well aligned. Electronically Signed by Jon Christie MD 05/21/2019 06:27 P
[2019-05-18] MEDS: NORCO, ANEXSIA 5/325MG TABLET (HYDROcodone/ACETAMINOPHEN) PO PRN ×2 (15:03→18:22)
[2019-05-18] MEDS: CLINDAMYCIN 900 MG in APPROPRIATE DILUENT 1 EA IV SCH (15:03)
[2019-05-18] MEDS: MORPHINE 4 MG/ML 1ML VIAL/SYRINGE (J2270) IV PRN ×3 (15:11→22:30)
[2019-05-18] MEDS: HumaLOG INSULIN (NovoLOG) PER UNIT SC SCH (17:30)
[2019-05-18] MEDS ORDERED: GLUCOSE 4 GM CHEW TABLET PO PRN (18:00)
[2019-05-18] MEDS ORDERED: DEXTROSE 50% 50 ML SYRINGE IV PRN (18:00)
[2019-05-18] MEDS ORDERED: NS 500 ML IV ONE (18:00)
[2019-05-18] MEDS ORDERED: GLUCAGON FOR INJ 1 MG VIAL (J1610) SC PRN (18:00)
[2019-05-18] MEDS ORDERED: RIVAROXABAN 10 MG TAB (XARELTO) PO SCH (18:00)
[2019-05-18] MEDS ORDERED: MAGIC MOUTHWASH SUSPENSION BTL SS PRN (18:15)
[2019-05-18] MEDS ORDERED: RIVAROXABAN 10 MG TAB (XARELTO) PO ONE (18:30)
--- NOTE | 2019-05-18 18:35 | CR.PDOC ---
General Date of Consultation: May 18, 2019 Referring Provider: Lorenzo Marques MD Primary Care Physician Dr Shelton Attending Physician: DIMITRY ARMANDO DO Consultation REASON FOR CONSULTATION/CHIEF COMPLAINT: medical management post left total hip arthoplasty HISTORY OF PRESENT ILLNESS: 73 yo diabetic female with history of afib,HTN had left total hip arthroplasty today (05/18/19) is being seen for medical management. Earlier today, while patient getting out to commode, she became dizzy, diaphoretic and had low blood pressures. She states currently no dizziness or diaphoretic and blames the pain medication. Patient states if she gets out of bed, dizziness returns. she states no chest pain, does have mild chronic SOB , chronic LBP and dry mouth - otherwise remaining ROS negative. ALLERGIES: PCN, Tramadol, Respirdone HOME MEDICATIONS: Please see below. PAST MEDICAL HISTORY: 1. HTN 2. Afib with atrial appendage 3. Diabetes (not on insulin) 4. CKD stage III 5. TIA 6. chronic low back pain 7. sleep apnea (on bipap at home PAST SURGICAL HISTORY: 1. cholecystectomy 2. total hysterectomy 3. right hip replacement 4. right knee replacement 5. s/p cardiac ablation 6. S/P pacemaker left upper chest wall FAMILY HISTORY: Father: age 74 with [place] Mother: age 54 from kidney failure SOCIAL HISTORY: Marital status ; denies EtOH use, denies tobacco use REVIEW OF SYSTEMS:10 comprehensive systems reviewed and negative except as per HPI Current Hospital Medications Acetaminophen (Tylenol Tab) 650 mg Q4HP PRN PO TEMP > 100; Start 05/18/19 at 09:45 Acetaminophen/ Hydrocodone Bitart ([place], Anexsia 5/325) 1 tab Q4H PRN PO MILD PAIN (PS 1-4) Last administered on 05/18/19at 15:03; Start 05/18/19 at 13:15 Clindamycin Phosphate 900 mg/ IV Miscellaneous Supplies 50 ml @ 50 mls/hr Q8H IV Last administered on 05/18/19at 15:03; Start 05/18/19 at 16:00; Stop 05/19/19 at 00:59 Dextrose (Dextrose 50%) 25 ml ASDIRECTED PRN IV SEE LABEL COMMENTS; Start 05/18/19 at 18:00 Fentanyl Citrate (Sublimaze) 25 mcg Q5MP PRN IV MODERATE PAIN (PS 4-7) Last administered on 05/18/19at 10:45; Start 05/18/19 at 09:45; Stop 05/18/19 at 10:45; Status DC Glucagon (Glucagon) 1 mg ASDIRECTED PRN SC SEE LABEL COMMENTS; Start 05/18/19 at 18:00 Glucose (Glucose) 16 GM ASDIRECTED PRN PO SEE LABEL COMMENTS; Start 05/18/19 at 18:00 Hydromorphone HCl (Dilaudid) 0.2 mg Q5MP PRN IV MODERATE/SEVERE PAIN (PS 5-10); Start 05/18/19 at 09:45; Stop 05/18/19 at 10:45; Status DC Insulin Human Lispro (HumaLOG INSULIN) SEE PROTOCOL TABLE AC SC ; Start 05/19/19 at 07:30; Status UNV Lactated Ringer's 1,000 ml @ 100 mls/hr Q10H IV ; Start 05/18/19 at 09:45; Stop 05/18/19 at 10:45; Status DC Lactated Ringer's 1,000 ml @ 150 mls/hr Q6H40M IV Last administered on 05/18/19at 07:33; Start 05/18/19 at 07:30; Stop 05/18/19 at 09:36; Status DC Morphine Sulfate (Morphine Sulfate Inj) 1 mg Q2HP PRN IV MODERATE PAIN (PS 5- 7); Start 05/18/19 at 09:45 Morphine Sulfate (Morphine Sulfate Inj) 3 mg Q2HP PRN IV SEVERE PAIN (PS 8-10) Last administered on 05/18/19at 15:11; Start 05/18/19 at 09:45 Ondansetron HCl (ZOFRAN INJection) 4 mg Q4HP PRN IV NAUSEA OR VOMITING Last administered on 05/18/19at 11:30; Start 05/18/19 at 09:45; Stop 05/18/19 at 10:45; Status DC Ondansetron HCl (ZOFRAN INJection) 4 mg Q6HP PRN IV NAUSEA; Start 05/18/19 at 09:45 Oxycodone HCl (Roxicodone, Oxyir) 5 mg ASDIRECTED PRN PO MILD/MODERATE PAIN (PS 1-7) Last administered on 05/18/19at 11:41; Start 05/18/19 at 11:00; Stop 05/18/19 at 11:50; Status DC Oxycodone/ Acetaminophen (Percocet 5mg/ 325mg Tablet) 1 tab ASDIRECTED PRN PO MILD/MODERATE PAIN (PS 1-7); Start 05/18/19 at 09:45; Stop 05/18/19 at 10:45; Status DC Rivaroxaban (Xarelto) 10 mg DAILY@18 PO ; Start 05/19/19 at 18:00 Sodium Biphosphate/ Sodium Phosphate (Fleet Enema) 1 ea DAILYPRN PRN [place] CONSTIPATION; Start 05/18/19 at 09:45 PHYSICAL EXAMINATION: VITAL SIGNS: Please see below. GENERAL APPEARANCE: pleasant , NAD, AAOx3 HEENT: LIOR/EOMI; oral mucosa moist, neck supple with no bruit RESPIRATORY: anteriorly CTA no W/R/R CARDIOVASCULAR: HRRR no murmur,left chest wall with pacemaker ABDOMEN: soft NT ND NABS EXTREMITIES: no edema to ankles; left hip dressing intact and not removed NEUROLOGICAL: CN 3-12 intact, no gross motor or sensory deficits PSYCHIATRIC: normal mood and affect SKIN: left hip bandage intacted; right forearm with small abrasions, no other ulcerations or bruising noted anteriorly LABORATORY DATA: Please see below. ASSESSMENT/PLAN: 1. left MONTY - management per ortho 2. hypotension - post op - possible due to pain medication - IVF bolus 500cc. 3. HTN - hold lisinopril and lasix until patient is euvolemia and no longer hypotensive. she denies any prior history of CHF 4. pAFIB - was on xarelto 20mg at home , has been started on 10mg xarelto for DVT prophylaxis. call placed to ortho and okay to increase to 20mg xarelto daily 5. diabetes - not on skilled nursing insulin without hypoglcyemia or hyperglycemia 6. obstructive sleep apnea - patient has brought in her home BIPAP machine for use 7. chronic low back pain - monitor for now. patient uses topical NSAID at home, would consider lidoderm patch instead because of potential NSAID/xarelto interaction 8. CKD stage III - avoid hypotension for possible worsening creatinine Thank you for allowing me to participate in the care of this patient. will continue to follow her medically. Vital Signs/I&O Vital Signs Date Time Temp Pulse Resp B/P (MAP) Pulse Ox O2 Delivery O2 Flow Rate FiO2 05/18/19 15:33 18 05/18/19 15:15 97.0 90 91/61 (69) 97 Laboratory Data CBC/BMP Laboratory Tests 05/18/19 07:00 PENDING for tomorrow AM Item Value Date Time White Blood Count 7.9 10^3/uL 04/18/19 0840 Hemoglobin 13.8 g/dl 04/18/19 0840 Hematocrit 43.0 % 04/18/19 0840 Platelet Count 281 10^3/uL 04/18/19 0840 Erythrocyte Sedimentation Rate 36 mm/hr H 04/18/19 0840 Sodium Level 137 MEQ/L 04/18/19 0840 Potassium Level 4.4 MEQ/L 04/18/19 0840 Chloride Level 105 MEQ/L 04/18/19 0840 Carbon Dioxide Level 24 MEQ/L 04/18/19 0840 Anion Gap 8 MEQ/L 04/18/19 0840 Blood Urea Nitrogen 22 MG/DL H 04/18/19 0840 Creatinine 0.86 MG/DL 04/18/19 0840 Aspartate Amino Transf (AST/SGOT) 26 U/L 04/18/19 0840 Alanine Aminotransferase (ALT/SGPT) 31 U/L 04/18/19 0840 Prothromb Time International Ratio 1.36 04/18/19 0840 Allergies Coded Allergies: Penicillins (Verified Adverse Reaction, Mild, itch, 05/18/19) risperidone (Verified Adverse Reaction, Mild, itch, 05/18/19) tramadol (Verified Adverse Reaction, Mild, itch, 05/18/19) Home Medications Scheduled Acetaminophen (Tylenol 8 Hour) 650 Mg Tablet.er, 650 MG PO BID, (Reported) Allopurinol (Zyloprim) 300 Mg Tab, 300 MG PO QAM, (Reported) Biotin (Biotin) 5 Mg Capsule, 5,000 MCG PO DAILY, (Reported) Cholecalciferol (Vitamin D3) (Vitamin D3) 2,000 Unit Capsule, 2,000 UNIT PO DAILY, (Reported) Flaxseed Oil (Flaxseed Oil) 1,000 Mg Cap, 1,000 MG PO QAM, (Reported) Furosemide (Furosemide) 20 Mg Tab, 20 MG PO DAILYPRN, (Reported) every other morning Lisinopril (Lisinopril) 10 Mg Tab, 20 MG PO QAM, (Reported) Loratadine (Children's Claritin) 5 Mg Chw, 5 MG PO QAM, (Reported) Metformin HCl (Metformin HCl) 500 Mg Tab, 500 MG PO BID, (Reported) Metronidazole (Metrogel) 55 Gm Gel.w.pump, 1 % EX QHS, (Reported) Multivitamin (Multivitamins) 1 Each Capsule, 1 CAP PO DAILY, (Reported) Nystatin (Nystatin Oral Susp) 100,000 Unit/1 Ml Oral.susp, 5 ML SS DAILY, (Reported) Orphenadrine Citrate (Orphenadrine Citrate ER) 100 Mg Tablet.er, 25 MG PO DAILY, (Reported) Propylene Glycol/Peg 400 (Systane 0.3-0.4% Eye Drops) 15 Ml Diane, 1 DROP OU TID, (Reported) Rivaroxaban (Xarelto) 20 Mg Tab, 20 MG PO QHS, (Reported) Scheduled PRN Diclofenac Sodium (Diclofenac Sodium) 1% 100GM Gel..gram., Unknown Dose TOP QID PRN for PAIN for 5 Days, #1 (Reported) Apply to area of pain Lorazepam (Lorazepam) 0.5 Mg Tab, 0.5 MG PO PRN PRN for ANXIETY/AGITATION, (Reported) Menthol (Bengay) 5% Gel..gram., 1 APLCT TOP PRN PRN for PAIN for 10 Days, #113 (Reported) DIMITRY ARMANDO DO May 18, 2019 16:20
[2019-05-19] MEDS: CLINDAMYCIN 900 MG in APPROPRIATE DILUENT 1 EA IV SCH (00:04)
[2019-05-19] MEDS: NORCO, ANEXSIA 5/325MG TABLET (HYDROcodone/ACETAMINOPHEN) PO PRN ×2 (00:04→04:13)
[2019-05-19 02:00] VITALS: BP 130/69
[2019-05-19 06:00] VITALS: BP 138/70
[2019-05-19] MEDS ORDERED: ONDANSETRON 4 MG TAB (S0181) PO PRN (06:00)
[2019-05-19 06:27] LABS: HEMATOCRIT 26.5 % (36.0-47.0); HEMOGLOBIN 8.4 g/dl (12.0-15.5); MEAN CORPUSCULAR HEMOGLOBIN 28.1 pg (27.0-33.0); MEAN CORPUSCULAR HGB CONC 31.7 g/dl (32.0-36.5); MEAN CORPUSCULAR VOLUME 88.6 fl (80.0-96.0); PLATELET COUNT, AUTOMATED 184 10^3/uL (150-450); RED BLOOD COUNT 2.99 10^6/uL (4.00-5.40); WHITE BLOOD COUNT 8.2 10^3/uL (4.0-10.0)
[2019-05-19 06:48] LABS: BLOOD UREA NITROGEN 17 MG/DL (7-18); CALCIUM LEVEL 8.1 MG/DL (8.8-10.2); CARBON DIOXIDE LEVEL 28 MEQ/L (21-32); CHLORIDE LEVEL 105 MEQ/L (98-107); CREATININE FOR GFR 0.86 MG/DL (0.55-1.30); GLOMERULAR FILTRATION RATE > 60.0 (>39); GLUCOSE, FASTING 116 MG/DL (70-100); SODIUM LEVEL 137 MEQ/L (136-145)
[2019-05-19] MEDS: HumaLOG INSULIN (NovoLOG) PER UNIT SC SCH ×3 (07:30→17:00)
[2019-05-19] MEDS: MIRALAX *UNIT DOSE* 17GM PACKET PO SCH (09:00)
[2019-05-19] MEDS ORDERED: PERCOCET 5MG/325MG TAB PO PRN (09:00)
[2019-05-19] MEDS ORDERED: MORPHINE 4 MG/ML 1ML VIAL/SYRINGE (J2270) IV PRN (09:00)
[2019-05-19] MEDS: MOM 30ML SUSPENSION UDC PO SCH (09:06)
[2019-05-19] MEDS: PERCOCET 5MG/325MG TAB PO PRN ×4 (09:07→21:52)
--- NOTE | 2019-05-19 09:17 | RO ---
DATE OF PROCEDURE: 05/18/2019 PREOPERATIVE DIAGNOSIS: Left hip osteoarthritis. POSTOPERATIVE DIAGNOSIS: Left hip osteoarthritis. PROCEDURE: Left total hip arthroplasty using a [place] size 6 standard offset +5 neck 52 acetabular component. SURGEON: Dr. Garett Marques PRINTING TABLE HAND: NELIA Bagley ANESTHESIA: Spinal ESTIMATED BLOOD LOSS: 200. COMPLICATIONS: None. INDICATION: 73-year-old severe arthritis left hip. She wished to go ahead with the hip replacement. She understood the nature and risks associated with this. PROCEDURE: The patient was taken to operating room and placed supine position after spinal anesthesia was induced. We then turned her right lateral decubitus position on the [place] positioner. All areas were padded appropriate. The left hip was prepped and draped in usual sterile fashion. Time-out was performed. I then created a longitudinal incision over the lateral aspect of the hip. Sharp dissection was carried down through subcutaneous tissue until the fascia was encountered. This was incised longitudinally and I divided the anterior 40% percent of the abductor off the anterior aspect of the hip exposing the femoral neck and were able to dislocate the hip without difficulty. The canal initiating reamer followed by the canal finding reamer lateralizing reamer and then sequentially reamed up to a size 6 which had good bony purchase. The neck cut was then made about three-quarters of a fingerbreadth up from the lesser trochanter. Removed the head, prepared the acetabulum, soft tissue was removed from around the acetabulum. I sequentially reamed up to a size 51 which had good concentric reaming and good bleeding bone. I impacted in a 52 cup and the appropriate amount of anteversion horizontal tilt and this was very well seated. I had irrigated copiously prior to this. The acetabular liner was then packed, it was a 36 x 52 and this was well seated. The apex hole eliminator had been placed. We then directed attention back the femur, I used broaches and broached up to a size 6 which matched up with the cut very nicely, did trial reduction with a 1.5 and the +5 neck and was very pleased with a +5. I did intentionally try to add a little bit a length because she was short preoperatively by a centimeter or so and did have to use a lift on this side. Soft tissue tension was appropriate. I did have to remove some osteophytes from the anterior aspect the acetabulum just with a rongeur. Hip range of motion was excellent with no instability in flexion, internal rotation, extension, external rotation, and there was minimal shuck in full extension. I irrigated copiously, placed the TXA solution deep in the wound, repaired the minimus with #1 Vicryl suture and the abductor with #1 Vicryl suture through bony holes. Irrigated copiously again at this point. Once I had an adequate abductor closure I then repaired the fascia luis m with #1 Vicryl suture and running Stratafix in both directions wtih the urology physician assistant's help. Irrigated, closed the subcutaneous tissue with #2-0 Vicryl and the skin with jakob. I did also placed some Exparel in the deep tissues irrigating at each level. Sterile dressing was applied after jakob were placed and she was taken to recovery room in stable condition. There were no known complications. The plan will be routine postop. The urology physician assistant was instrumental in holding retractors and assisting in reducing and dislocating the hip and assisting in wound closure.
[2019-05-19 11:34] VITALS: BP 99/73
[2019-05-19 11:37] VITALS: BP 102/68
[2019-05-19 14:03] VITALS: BP 108/62
[2019-05-19] MEDS ORDERED: RIVAROXABAN 10 MG TAB (XARELTO) PO SCH ×2 (18:00)
--- NOTE | 2019-05-19 19:54 | IPNPDOC ---
Text Note Date of Service The patient was seen on 05/19/19. NOTE S: patient states she is frustrated because more hip/knee pain on left than when she had prior right hip surgery. States she refused insulin last night because worried about hypoglycemia. Blood sugars have been ranging 120-190. Metformen on hold. O: Vitals as below General: pleasant NAD AAOx3 HRRR LCTA A/P: 1. left MONTY - management per ortho 2 hypotension - improved with fluid bolus 3. HTN - restart lisinopril and hold lasix until patient is euvolemia and no longer hypotensive. she denies any prior history of CHF 4. pAFIB - was on xarelto 20mg at home , has been started on 10mg xarelto for DVT prophylaxis. call placed to ortho and okay to increase to 20mg xarelto daily 5. 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 obstructive sleep apnea - patient has brought in her home BIPAP machine for use 7. chronic low back pain - monitor for now. patient uses topical NSAID at home, would consider lidoderm patch instead because of potential NSAID/xarelto interaction 8. CKD stage III - avoid hypotension for possible worsening creatinine VS,Fishbone, I+O VS, Fishbone, I+O Laboratory Tests 05/19/19 06:03 Red Blood Count 2.99 L, Mean Corpuscular Volume 88.6, Mean Corpuscular Hemoglobin 28.1, Mean Corpuscular Hemoglobin Concent 31.7 L, Red Cell Distribution Width 14.6 H, Calcium Level 8.1 L Vital Signs Date Time Temp Pulse Resp B/P (MAP) Pulse Ox O2 Delivery O2 Flow Rate FiO2 05/19/19 14:10 16 05/19/19 14:03 100.4 102 108/62 (77 96 I&O- Last 24 Hours up to 6 AM 05/19/19 06:00 Intake Total 910 ml Output Total 1250 ml Balance -340 ml DIMITRY ARMANDO DO May 19, 2019 15:15
[2019-05-19] MEDS ORDERED: RIVAROXABAN 10 MG TAB (XARELTO) PO ONE (20:00)
[2019-05-19 22:00] VITALS: BP 114/64
[2019-05-19] MEDS ORDERED: diphenhydrAMINE CREAM 30GM TOP PRN (22:15)
[2019-05-20] MEDS: PERCOCET 5MG/325MG TAB PO PRN ×5 (02:33→21:24)
[2019-05-20 06:00] VITALS: BP 113/62
[2019-05-20 06:50] LABS: HEMATOCRIT 25.8 % (36.0-47.0); HEMOGLOBIN 8.2 g/dl (12.0-15.5); MEAN CORPUSCULAR HEMOGLOBIN 29.2 pg (27.0-33.0); MEAN CORPUSCULAR HGB CONC 31.8 g/dl (32.0-36.5); MEAN CORPUSCULAR VOLUME 91.8 fl (80.0-96.0); PLATELET COUNT, AUTOMATED 178 10^3/uL (150-450); RED BLOOD COUNT 2.81 10^6/uL (4.00-5.40); WHITE BLOOD COUNT 9.6 10^3/uL (4.0-10.0)
[2019-05-20] MEDS ORDERED: PERC5TAB12 PO (06:55)
[2019-05-20] MEDS: HumaLOG INSULIN (NovoLOG) PER UNIT SC SCH ×3 (07:30→17:30)
[2019-05-20] MEDS ORDERED: VOLTAREN GEL (PATIENT'S OWN MED) EXT SCH (09:00)
[2019-05-20] MEDS: MOM 30ML SUSPENSION UDC PO SCH (09:19)
[2019-05-20] MEDS: MIRALAX *UNIT DOSE* 17GM PACKET PO SCH (09:19)
[2019-05-20] MEDS: LISINOPRIL 10 MG TAB PO SCH (09:22)
[2019-05-20 14:00] VITALS: BP 109/57
[2019-05-20] MEDS ORDERED: RIVAROXABAN 20 MG TAB (XARELTO) PO SCH (18:00)
[2019-05-20 22:00] VITALS: BP 130/64
[2019-05-21] MEDS: PERCOCET 5MG/325MG TAB PO PRN ×3 (04:55→13:07)
[2019-05-21 06:00] VITALS: BP 110/62
[2019-05-21] MEDS ORDERED: MAGNESIUM CITRATE 300 ML BTL PO ONE (06:45)
[2019-05-21] MEDS: HumaLOG INSULIN (NovoLOG) PER UNIT SC SCH ×2 (07:30→12:30)
[2019-05-21] MEDS: MIRALAX *UNIT DOSE* 17GM PACKET PO SCH (08:57)
[2019-05-21] MEDS: MOM 30ML SUSPENSION UDC PO SCH (08:57)
[2019-05-21 08:59] VITALS: BP 113/65
[2019-05-21] MEDS: LISINOPRIL 10 MG TAB PO SCH (08:59)
[2019-05-21 14:00] VITALS: BP 108/58
== END 2019-05-21 16:35 | disposition home or self-care (01) | DRG 470 ==
LOC: M OR 06:32 → M MS5PR 12:50
PROVIDERS: ADMIT Orthopaedic Surgery; ATTEND Family Medicine
PROC: 0SRB02Z Replacement of Left Hip Joint with Metal on Polyethylene Synthetic Substitute, Open Approach (ICD-10-PCS; principal; 2019-05-18 07:30)
DX: M16.12 Unilateral primary osteoarthritis, left hip (principal); E11.22 Type 2 diabetes mellitus with diabetic chronic kidney disease; I48.0 Paroxysmal atrial fibrillation; N18.3 Chronic kidney disease, stage 3 (moderate); I95.89 Other hypotension; M54.5 Low back pain; K21.9 Gastro-esophageal reflux disease without esophagitis; G47.33 Obstructive sleep apnea (adult) (pediatric); I12.9 Hypertensive chronic kidney disease with stage 1 through stage 4 chronic kidney disease, or unspecified chronic kidney disease; Z90.49 Acquired absence of other specified parts of digestive tract; Z96.641 Presence of right artificial hip joint; Z96.651 Presence of right artificial knee joint; Z79.84 Long term (current) use of oral hypoglycemic drugs; Z79.899 Other long term (current) drug therapy; Z95.0 Presence of cardiac pacemaker

== ENCOUNTER → 2024-02-24 | Outpatient (CLI) | payer MEDICARE ==
[~2024-02-24] MED LIST changes: -ACETAMINOPHEN 1000MG 100ML IV BTL (OFIRMEV) (J0131 PER 10MG) As Ordered ONE; -BIOT50004 PO; +BIOT5CAP8 PO; +DICL100G10 TOP; -DICL1GEL3 TOP; +ISOVUE-300 61% 100ML VIAL As Ordered ONE; +LIDOCAINE 1% MDV 20ML VIAL As Ordered ONE; -LIDOCAINE 2% INJ 100 MG/5 ML SDV (FOR ANES.) As Ordered ONE; +LISI10TA22 PO; -LISI10TA4 PO; -LORA0.5T11 PO; +LORA0.5T5 PO; -MIDAZOLAM INJ 2 MG/2 ML VIAL (J2250) As Ordered ONE; +NYST-38 SS; -NYST50SS SS; +OMEP-358 PO; -OMEP20TA PO; -ORPH100T2 PO; +ORPH100T48 PO; -PROPOFOL 200 MG/20 ML VIAL As Ordered ONE; -fentaNYL 100 MCG/2 ML INJECTION (J3010) As Ordered ONE
== END ==
LOC: M RAD 02-15 08:41
PROVIDERS: ATTEND Orthopaedic Surgery
DX: M17.12 Unilateral primary osteoarthritis, left knee (principal)
CPT/HCPCS: 27369; 73580; 73701; Q9967

== ENCOUNTER 2025-01-04 08:46 | Emergency (ER) | payer MEDICARE ==
[~2025-01-04 08:46] MED LIST changes: -CLAR1CHW2 PO; -ISOVUE-300 61% 100ML VIAL As Ordered ONE; -LIDOCAINE 1% MDV 20ML VIAL As Ordered ONE; +LORA5TAB15 PO
[2025-01-04 10:19] LABS: HEMATOCRIT 40.8 % (36.0-47.0); HEMOGLOBIN 13.5 g/dl (12.0-15.5); MEAN CORPUSCULAR HEMOGLOBIN 29.5 pg (27.0-33.0); MEAN CORPUSCULAR HGB CONC 33.1 g/dl (32.0-36.5); MEAN CORPUSCULAR VOLUME 89.3 fl (80.0-96.0); PLATELET COUNT, AUTOMATED 223 10^3/uL (150-450); RED BLOOD COUNT 4.57 10^6/uL (4.00-5.40); WHITE BLOOD COUNT 6.4 10^3/uL (4.0-10.0)
[2025-01-04 10:41] LABS: BLOOD UREA NITROGEN 17 MG/DL (9-23); CALCIUM LEVEL 9.3 MG/DL (8.3-10.6); CARBON DIOXIDE LEVEL 24 MMOL/L (20-31); CHLORIDE LEVEL 102 MMOL/L (98-107); CREATININE FOR GFR 0.72 MG/DL (0.55-1.30); GLOMERULAR FILTRATION RATE > 60.0 (>39); GLUCOSE, FASTING 92 MG/DL (74-106); POTASSIUM SERUM 4.6 MMOL/L (3.5-5.1); SODIUM LEVEL 136 MMOL/L (136-145)
[2025-01-04] MEDS ORDERED: FLUO0.0531 (12:10)
[2025-01-04] MEDS ORDERED: ROSU5TAB49 (12:10)
[2025-01-04] MEDS ORDERED: PERI12LIQ (12:10)
[2025-01-04] MEDS: FUROSEMIDE 40MG/4ML VIAL IV ONE (13:31)
[2025-01-04 15:11] VITALS: BP 158/82; TEMP 96.9; O2SAT 98
== END 2025-01-04 15:14 | disposition home or self-care (01) ==
LOC: M ED 08:46
DX: I50.23 Acute on chronic systolic (congestive) heart failure (principal); I48.3 Typical atrial flutter; I48.91 Unspecified atrial fibrillation; E11.9 Type 2 diabetes mellitus without complications; I11.0 Hypertensive heart disease with heart failure; E78.5 Hyperlipidemia, unspecified; K21.9 Gastro-esophageal reflux disease without esophagitis; G47.33 Obstructive sleep apnea (adult) (pediatric); N18.30 Chronic kidney disease, stage 3 unspecified; Z88.0 Allergy status to penicillin; Z88.8 Allergy status to other drugs, medicaments and biological substances; Z79.1 Long term (current) use of non-steroidal anti-inflammatories (NSAID); Z79.84 Long term (current) use of oral hypoglycemic drugs; Z79.01 Long term (current) use of anticoagulants; Z79.899 Other long term (current) drug therapy; Z79.810 Long term (current) use of selective estrogen receptor modulators (SERMs)
CPT/HCPCS: 71045; 80048; 83880; 84484; 85027; 93005; 96374; 99285; J1940

== ENCOUNTER 2025-01-08 09:02 | Observation (INO) | payer MEDICARE ==
[~2025-01-08] VITALS: Ht 162.6 cm; Wt 79.8 kg
[~2025-01-08 09:02] MED LIST changes: +FLUO0.0531 PO; +PERI12LIQ SSP; +ROSU5TAB49 PO
[2025-01-08 09:44] LABS: VENOUS BASE EXCESS 1.2 (-2.0-2.0); VENOUS HCO3 24.4 MMOL/L (23.0-27.0); VENOUS O2 SATURATION 75.8 % (60.0-80.0); VENOUS PARTIAL PRESSURE O2 39.7 mmHg (30.0-50.0); VENOUS PH 7.462 UNITS (7.330-7.430); VENOUS STANDARD HCO3 24.9 MMOL/L; VENOUS TOTAL CO2 25.5 MMOL/L (24.0-28.0)
[2025-01-08 10:03] LABS: BASO % 0.6 % (0.0-1.0); HEMATOCRIT 43.5 % (36.0-47.0); HEMOGLOBIN 14.7 g/dl (12.0-15.5); LYMPH # 0.6 10^3/uL (1.5-5.0); LYMPH % 8.4 % (24.0-44.0); MEAN CORPUSCULAR HEMOGLOBIN 29.2 pg (27.0-33.0); MEAN CORPUSCULAR HGB CONC 33.8 g/dl (32.0-36.5); MEAN CORPUSCULAR VOLUME 86.5 fl (80.0-96.0); MONO # 0.4 10^3/uL (0.0-0.8); MONO % 5.1 % (2.0-8.0); NEUTROPHILS % 85.5 % (36.0-66.0); PLATELET COUNT, AUTOMATED 231 10^3/uL (150-450); RED BLOOD COUNT 5.03 10^6/uL (4.00-5.40); WHITE BLOOD COUNT 7.1 10^3/uL (4.0-10.0)
[2025-01-08 10:19] LABS: ALBUMIN 4.1 G/DL (3.2-5.2); ALKALINE PHOSPHATASE 91 U/L (35-104); ALT/SGPT 20 U/L (7.0-40); AST/SGOT 24 U/L (<34); BILIRUBIN,DIRECT 0.3 MG/DL (<0.4); BILIRUBIN,TOTAL 0.8 MG/DL (0.3-1.2); BLOOD UREA NITROGEN 21 MG/DL (9-23); CALCIUM LEVEL 9.6 MG/DL (8.3-10.6); CARBON DIOXIDE LEVEL 24 MMOL/L (20-31); CHLORIDE LEVEL 94 MMOL/L (98-107); CPK CREATINE PHOSPHOKINASE 154 U/L (34-145); CREATININE FOR GFR 0.83 MG/DL (0.55-1.30); GLOMERULAR FILTRATION RATE > 60.0 (>39); GLUCOSE, FASTING 97 MG/DL (74-106); POTASSIUM SERUM 3.9 MMOL/L (3.5-5.1); SODIUM LEVEL 129 MMOL/L (136-145)
[2025-01-08 10:22] LABS: CK-MB VALUE MASS 2.1 NG/ML (<3.6); MB/CK RELATIVE INDEX 1.36 (< OR =4)
[2025-01-08 10:24] LABS: THYROXINE (T4) 7.7 UG/DL (4.5-10.9)
[2025-01-08 10:25] LABS: THYROID STIMULATING HORMONE 3.817 uIU/ML (0.55-4.78)
[2025-01-08] MEDS: ACETAMINOPHEN 325 MG TAB PO ONE (13:35)
[2025-01-08] MEDS ORDERED: ISOVUE-370 76% 100ML VIAL As Ordered ONE (13:42)
[2025-01-08] MEDS ORDERED: GLUCAGON INJ 1MG VIAL SC PRN (17:50)
[2025-01-08] MEDS ORDERED: DEXTROSE 50% 50ML SYRINGE IV PRN (17:50)
[2025-01-08] MEDS ORDERED: GLUCOSE 4 GM CHEW PO PRN (17:50)
[2025-01-08] MEDS ORDERED: LORazepam 0.5 MG TAB PO PRN (19:35)
[2025-01-08] MEDS ORDERED: PERCOCET 5MG/325MG TAB PO PRN (19:35)
[2025-01-08] MEDS ORDERED: NITROGLYCERIN 0.4MG SUBL TABLET SL PRN (19:45)
[2025-01-08 20:50] VITALS: BP 143/77; TEMP 97.3; O2SAT 98
[2025-01-08] MEDS ORDERED: FLUOCINONIDE 0.05% OINT 15GM TOP SCH (21:00)
[2025-01-08] MEDS: INSULIN LISPRO (NovoLOG) PER UNIT SC SCH (21:00)
[2025-01-08] MEDS ORDERED: metroNIDAZOLE 70GM VAGINAL GEL PV SCH (21:00)
[2025-01-08] MEDS: DICLOFENAC EPOLAMINE 1.3% PATCH TOP SCH (21:00)
[2025-01-08] MEDS: SUCRALFATE SUSP 1GM/10ML UD PO SCH (21:11)
[2025-01-08] MEDS: metOLazone 2.5 MG TAB PO ONE (21:11)
[2025-01-08] MEDS ORDERED: ALLO300T2 PO (21:36)
[2025-01-08] MEDS ORDERED: ACET-897 PO (21:36)
[2025-01-08] MEDS ORDERED: VITA200016 PO (21:36)
[2025-01-08] MEDS ORDERED: ACET1TAB55 PO (21:36)
[2025-01-08] MEDS: POLYVINYL ALCOHOL OPHTH SOLN 15ML (LIQUITEARS) OU SCH (21:51)
[2025-01-08] MEDS: ANALGESIC BALM CRM 3OZ TOP SCH (21:51)
[2025-01-08] MEDS ORDERED: MULT-90 PO (21:56)
[2025-01-08] MEDS ORDERED: LISI20TA33 PO (21:56)
[2025-01-08] MEDS ORDERED: BENG1CRE TOP (21:56)
[2025-01-08] MEDS ORDERED: BUME1TAB3 PO (22:06)
[2025-01-08] MEDS ORDERED: NYST1POW3 TOP (22:12)
[2025-01-08] MEDS ORDERED: KETO2CR TOP (22:12)
[2025-01-08] MEDS ORDERED: [UNRECOGNIZED DRUG - CODE] MM (22:15)
[2025-01-08] MEDS ORDERED: CITRTAB PO (22:26)
[2025-01-08] MEDS ORDERED: FLON1SPR NARES (22:26)
[2025-01-08] MEDS ORDERED: OSTETAB3 PO (22:26)
[2025-01-08] MEDS ORDERED: HOME MED LIST COMPLETE! XX SCH (22:35)
[2025-01-08] MEDS: BUMETANIDE 1 MG TAB PO ONE (22:49)
[2025-01-09] MEDS: ROSUVASTATIN 10 MG TAB (CRESTOR) PO SCH (00:40)
[2025-01-09] MEDS: RIVAROXABAN 20MG TAB (XARELTO) PO SCH (00:40)
[2025-01-09] MEDS: PANTOPRAZOLE 40MG TAB (PROTONIX) PO SCH (00:41)
[2025-01-09] MEDS: CHLORHEXIDINE GLUCONATE 0.12 % 15ML UDC (PERIDEX ORAL RINSE) SSP SCH (00:43)
[2025-01-09 00:47] LABS: CK-MB VALUE MASS 1.6 NG/ML (<3.6)
[2025-01-09 00:48] LABS: MB/CK RELATIVE INDEX 1.02 (< OR =4)
[2025-01-09 02:15] VITALS: BP 140/77; TEMP 97.7; O2SAT 98
[2025-01-09] MEDS: BENZOCAINE 10% 9GM TUBE (ANBESOL) MT SCH (02:33)
[2025-01-09] MEDS: SODIUM CHLORIDE NASAL 0.65% SPRAY BTL (OCEAN) PRN (03:16)
[2025-01-09 04:30] VITALS: BP 134/76; TEMP 97.7; O2SAT 99
[2025-01-09 05:25] LABS: BASO % 0.7 % (0.0-1.0); HEMATOCRIT 43.3 % (36.0-47.0); HEMOGLOBIN 14.6 g/dl (12.0-15.5); LYMPH % 16.2 % (24.0-44.0); MEAN CORPUSCULAR HEMOGLOBIN 29.2 pg (27.0-33.0); MEAN CORPUSCULAR HGB CONC 33.7 g/dl (32.0-36.5); MEAN CORPUSCULAR VOLUME 86.6 fl (80.0-96.0); MONO # 0.7 10^3/uL (0.0-0.8); MONO % 11.1 % (2.0-8.0); NEUTROPHILS # 4.4 10^3/uL (1.5-8.5); NEUTROPHILS % 71.7 % (36.0-66.0); PLATELET COUNT, AUTOMATED 232 10^3/uL (150-450); WHITE BLOOD COUNT 6.1 10^3/uL (4.0-10.0)
[2025-01-09 05:41] LABS: HEMOGLOBIN A1c 5.4 % (4.0-6.0)
[2025-01-09 05:45] LABS: CK-MB VALUE MASS 1.9 NG/ML (<3.6)
[2025-01-09 05:47] LABS: BLOOD UREA NITROGEN 17 MG/DL (9-23); CALCIUM LEVEL 9.7 MG/DL (8.3-10.6); CARBON DIOXIDE LEVEL 25 MMOL/L (20-31); CHLORIDE LEVEL 97 MMOL/L (98-107); CHOLESTEROL LEVEL 102 MG/DL (<200); CPK CREATINE PHOSPHOKINASE 146 U/L (34-145); CREATININE FOR GFR 0.92 MG/DL (0.55-1.30); GLOMERULAR FILTRATION RATE > 60.0 (>39); GLUCOSE, FASTING 102 MG/DL (74-106); HDL CHOLESTEROL 56.5 MG/DL (>40); LDL CHOLESTEROL 30.5 MG/DL (<100); NON-HDL-C 45.5 MG/DL; POTASSIUM SERUM 3.6 MMOL/L (3.5-5.1); SODIUM LEVEL 134 MMOL/L (136-145); TRIGLYCERIDES LEVEL 75 MG/DL (<150)
[2025-01-09 05:49] LABS: THYROID STIMULATING HORMONE 5.405 uIU/ML (0.55-4.78)
[2025-01-09] MEDS: INSULIN LISPRO (NovoLOG) PER UNIT SC SCH (07:10)
[2025-01-09] MEDS ORDERED: SYSTANE OU SCH (09:00)
[2025-01-09] MEDS ORDERED: EYE OU SCH (09:00)
[2025-01-09] MEDS ORDERED: E-Z-GAS II EFFERVESCENT PACKET (SODIUM BICARB./CITRIC ACID/SIMETHICONE) As Ordered ONE (09:37)
[2025-01-09] MEDS ORDERED: E-Z-PAQUE 96% w/w SUSP 176GM BTL As Ordered ONE (09:37)
[2025-01-09] MEDS ORDERED: E-Z-HD 98% w/w 340GM SUSP BTL As Ordered ONE (09:38)
[2025-01-09 12:00] VITALS: BP 153/85; TEMP 97.3; O2SAT 99
[2025-01-09] MEDS ORDERED: CARA1TAB6 PO (12:07)
[2025-01-09] MEDS ORDERED: PROT1TAB2 PO (12:07)
[2025-01-09 12:34] LABS: CK-MB VALUE MASS 1.8 NG/ML (<3.6)
[2025-01-09] MEDS: BUMETANIDE 1 MG TAB PO SCH (12:35)
[2025-01-09 12:36] VITALS: BP 156/84
[2025-01-09 12:36] LABS: MB/CK RELATIVE INDEX 1.16 (< OR =4)
[2025-01-09] MEDS: MULTIVITAMINS/MINERALS THERAP 1 TAB PO SCH (12:36)
[2025-01-09] MEDS: allopurinoL 300 MG TAB PO SCH (12:36)
[2025-01-09] MEDS: UNRESOLVED PATIENT OWN MED ORDER XX SCH (12:36)
[2025-01-09] MEDS: LORATADINE 5 MG HALF-TAB PO SCH (12:36)
[2025-01-09] MEDS ORDERED: LASI20TA3 PO (13:06)
[2025-01-09] MEDS ORDERED: TALK1KIT MC (13:07)
[2025-01-10] MEDS ORDERED: FUROSEMIDE 20 MG TAB PO SCH (09:00)
[2025-01-10 14:02] LABS: ANTI SCLERODERMA ANTIBODIES <1.0 NEG AI (<1.0 NEG)
[2025-01-10 18:51] LABS: ANA SCREEN, IFA NEGATIVE (NEGATIVE)
== END 2025-01-09 14:12 | disposition home or self-care (01) ==
LOC: M ED 09:02 → INTOOBSV 17:42 → M ED INP 17:42 → M MSPAV 20:50
PROVIDERS: ADMIT General Practice; ATTEND General Practice
DX: R07.89 Other chest pain (principal); R06.02 Shortness of breath; Z91.148 Patient's other noncompliance with medication regimen for other reason; I13.0 Hypertensive heart and chronic kidney disease with heart failure and stage 1 through stage 4 chronic kidney disease, or unspecified chronic kidney disease; I50.9 Heart failure, unspecified; E11.22 Type 2 diabetes mellitus with diabetic chronic kidney disease; K12.0 Recurrent oral aphthae; R68.2 Dry mouth, unspecified; H04.123 Dry eye syndrome of bilateral lacrimal glands; R13.10 Dysphagia, unspecified; N18.30 Chronic kidney disease, stage 3 unspecified; I48.91 Unspecified atrial fibrillation; G47.33 Obstructive sleep apnea (adult) (pediatric); M54.50 Low back pain, unspecified; Z86.73 Personal history of transient ischemic attack (TIA), and cerebral infarction without residual deficits; Z98.890 Other specified postprocedural states; Z95.0 Presence of cardiac pacemaker; R60.0 Localized edema; Z90.49 Acquired absence of other specified parts of digestive tract; Z90.79 Acquired absence of other genital organ(s); Z96.641 Presence of right artificial hip joint; Z96.651 Presence of right artificial knee joint; Z82.49 Family history of ischemic heart disease and other diseases of the circulatory system; Z82.41 Family history of sudden cardiac death; Z84.1 Family history of disorders of kidney and ureter; Z88.0 Allergy status to penicillin; Z88.8 Allergy status to other drugs, medicaments and biological substances; Z79.899 Other long term (current) drug therapy; Z79.01 Long term (current) use of anticoagulants; Z79.84 Long term (current) use of oral hypoglycemic drugs

== ENCOUNTER 2025-01-11 00:25 | Inpatient (IN) | payer MEDICARE ==
[~2025-01-11] VITALS: Ht 162.6 cm; Wt 79.0 kg
[~2025-01-11 00:25] MED LIST changes: +ACET-897 PO; +ACET1TAB55 PO; +ALLO300T2 PO; +BENG1CRE TOP; +BUME1TAB3 PO; +CARA1TAB6 PO; +CITRTAB PO; +FLON1SPR NARES; +KETO2CR TOP; +LASI20TA3 PO; +LISI20TA33 PO; +MULT-90 PO; +NYST1POW3 TOP; +OSTETAB3 PO; +PROT1TAB2 PO; +TALK1KIT MC; +VITA200016 PO; +[UNRECOGNIZED DRUG - CODE] MM
[2025-01-11] MEDS: HYOSCYAMINE SULFATE 0.125 MG SUBL TABLET PO ONE (02:58)
[2025-01-11 03:31] LABS: BASO % 0.3 % (0.0-1.0); EOS % 0.3 % (0.0-3.0); HEMATOCRIT 43.1 % (36.0-47.0); HEMOGLOBIN 15.1 g/dl (12.0-15.5); LYMPH # 0.9 10^3/uL (1.5-5.0); LYMPH % 11.5 % (24.0-44.0); MEAN CORPUSCULAR HEMOGLOBIN 29.9 pg (27.0-33.0); MEAN CORPUSCULAR VOLUME 85.3 fl (80.0-96.0); MONO # 0.4 10^3/uL (0.0-0.8); MONO % 5.7 % (2.0-8.0); NEUTROPHILS # 6.2 10^3/uL (1.5-8.5); NEUTROPHILS % 81.8 % (36.0-66.0); PLATELET COUNT, AUTOMATED 203 10^3/uL (150-450); RED BLOOD COUNT 5.05 10^6/uL (4.00-5.40); WHITE BLOOD COUNT 7.5 10^3/uL (4.0-10.0)
[2025-01-11 04:06] LABS: CK-MB VALUE MASS 4.4 NG/ML (<3.6)
[2025-01-11 04:11] LABS: BLOOD UREA NITROGEN 21 MG/DL (9-23); CALCIUM LEVEL 9.4 MG/DL (8.3-10.6); CARBON DIOXIDE LEVEL 22 MMOL/L (20-31); CHLORIDE LEVEL 85 MMOL/L (98-107); CPK CREATINE PHOSPHOKINASE 283 U/L (34-145); GLOMERULAR FILTRATION RATE > 60.0 (>39); GLUCOSE, FASTING 120 MG/DL (74-106); MAGNESIUM LEVEL 1.7 MG/DL (1.8-2.4); MB/CK RELATIVE INDEX 1.55 (< OR =4); POTASSIUM SERUM 3.4 MMOL/L (3.5-5.1); SODIUM LEVEL 121 MMOL/L (136-145)
[2025-01-11] MEDS: NS 500 ML IV ONE (05:50)
[2025-01-11] MEDS: POTASSIUM CHLORIDE 10% LIQ 20MEQ/15ML UDC PO ONE (06:15)
[2025-01-11] MEDS: MAG SULF 1GM/100ML (MAG RUN) 1 GM in IV 1 EA IV ONE (06:16)
[2025-01-11] MEDS: FAMOTIDINE 20MG/2ML VIAL IVP ONE (06:16)
[2025-01-11] MEDS ORDERED: PANT40TA29 PO (08:43)
[2025-01-11] MEDS ORDERED: SUCR1TA PO (08:43)
[2025-01-11] MEDS ORDERED: FURO20TA2 PO (08:43)
[2025-01-11] MEDS ORDERED: HOME MED LIST COMPLETE! XX SCH (08:45)
[2025-01-11] MEDS ORDERED: POLYVINYL ALCOHOL OPHTH SOLN 15ML (LIQUITEARS) OU PRN (09:35)
[2025-01-11] MEDS ORDERED: FLUTICASONE PROP 0.05% NASAL SPRAY 16 GM (FLONASE) NARES PRN (09:35)
[2025-01-11 10:06] LABS: OSMOLALITY URINE 159 MOSM/KG (50-1400)
[2025-01-11] MEDS: LORATADINE 5 MG HALF-TAB PO SCH (10:14)
[2025-01-11] MEDS: allopurinoL 300 MG TAB PO SCH (10:14)
[2025-01-11] MEDS: PANTOPRAZOLE 40MG TAB (PROTONIX) PO SCH ×2 (10:14→20:07)
[2025-01-11 10:18] LABS: SODIUM,RANDOM URINE 12 MMOL/L
[2025-01-11 11:19] LABS: BLOOD UREA NITROGEN 16 MG/DL (9-23); CALCIUM LEVEL 8.7 MG/DL (8.3-10.6); CARBON DIOXIDE LEVEL 26 MMOL/L (20-31); CHLORIDE LEVEL 89 MMOL/L (98-107); GLOMERULAR FILTRATION RATE > 60.0 (>39); GLUCOSE, FASTING 121 MG/DL (74-106); MAGNESIUM LEVEL 1.9 MG/DL (1.8-2.4); POTASSIUM SERUM 3.4 MMOL/L (3.5-5.1); SODIUM LEVEL 124 MMOL/L (136-145)
[2025-01-11 12:15] VITALS: BP 131/64; TEMP 97; O2SAT 100
[2025-01-11] MEDS ORDERED: ACETAMINOPHEN 325 MG TAB PO PRN (13:40)
[2025-01-11] MEDS: KCL 40MEQ in NS 1000ML 1,000 ML IV SCH (13:59)
[2025-01-11] MEDS: SUCRALFATE SUSP 1GM/10ML UD PO SCH (13:59)
[2025-01-11] MEDS: ACETAMINOPHEN 325 MG TAB PO ONE (15:30)
[2025-01-11] MEDS: RIVAROXABAN 20MG TAB (XARELTO) PO SCH (17:34)
[2025-01-11 18:58] LABS: BLOOD UREA NITROGEN 19 MG/DL (9-23); CALCIUM LEVEL 8.7 MG/DL (8.3-10.6); CARBON DIOXIDE LEVEL 23 MMOL/L (20-31); CHLORIDE LEVEL 96 MMOL/L (98-107); CREATININE FOR GFR 0.77 MG/DL (0.55-1.30); GLOMERULAR FILTRATION RATE > 60.0 (>39); GLUCOSE, FASTING 109 MG/DL (74-106); POTASSIUM SERUM 4.3 MMOL/L (3.5-5.1); SODIUM LEVEL 128 MMOL/L (136-145)
[2025-01-11 19:40] VITALS: BP 126/60; TEMP 97.3; O2SAT 97
[2025-01-11] MEDS: ROSUVASTATIN 10 MG TAB (CRESTOR) PO SCH (20:07)
[2025-01-11] MEDS ORDERED: PILL CUTTER 1 EACH XX ONE (20:10)
[2025-01-11] MEDS: DOCUSATE SODIUM 100MG CAPSULE PO SCH (20:12)
[2025-01-12 04:03] VITALS: BP 139/76; TEMP 97.3; O2SAT 99
[2025-01-12 06:01] LABS: HEMATOCRIT 40.3 % (36.0-47.0); HEMOGLOBIN 13.8 g/dl (12.0-15.5); MEAN CORPUSCULAR HEMOGLOBIN 29.5 pg (27.0-33.0); MEAN CORPUSCULAR HGB CONC 34.2 g/dl (32.0-36.5); MEAN CORPUSCULAR VOLUME 86.1 fl (80.0-96.0); PLATELET COUNT, AUTOMATED 204 10^3/uL (150-450); RED BLOOD COUNT 4.68 10^6/uL (4.00-5.40); WHITE BLOOD COUNT 5.2 10^3/uL (4.0-10.0)
[2025-01-12 06:22] LABS: BLOOD UREA NITROGEN 16 MG/DL (9-23); CARBON DIOXIDE LEVEL 25 MMOL/L (20-31); CHLORIDE LEVEL 100 MMOL/L (98-107); CREATININE FOR GFR 0.73 MG/DL (0.55-1.30); GLOMERULAR FILTRATION RATE > 60.0 (>39); GLUCOSE, FASTING 97 MG/DL (74-106); POTASSIUM SERUM 4.3 MMOL/L (3.5-5.1); SODIUM LEVEL 132 MMOL/L (136-145)
[2025-01-12 06:44] LABS: LYMPHOCYTES 8 % (16-44); MONOCYTES 2 % (0-5); NEUTROPHILS 90 % (28-66)
[2025-01-12 06:46] LABS: PLATELET ESTIMATE NORMAL (NORMAL)
[2025-01-12 07:59] VITALS: BP 150/76; TEMP 97.3; O2SAT 99
[2025-01-12 10:20] VITALS: BP 150/76
[2025-01-12 12:00] VITALS: BP 121/77; TEMP 97.5; O2SAT 98
[2025-01-12] MEDS ORDERED: SUCR1TA PO (13:41)
[2025-01-12] MEDS ORDERED: BUME1TAB3 PO (13:42)
== END 2025-01-12 16:20 | disposition home or self-care (01) | DRG 641 ==
LOC: M ED 00:25 → M ED INP 09:29 → M MSPAV 12:14
PROVIDERS: ADMIT Internal Medicine Nephrology; ATTEND Internal Medicine Nephrology
PROC: B246ZZZ Ultrasonography of Right and Left Heart (ICD-10-PCS; principal; 2025-01-12)
DX: E87.1 Hypo-osmolality and hyponatremia (principal); I50.32 Chronic diastolic (congestive) heart failure; I13.0 Hypertensive heart and chronic kidney disease with heart failure and stage 1 through stage 4 chronic kidney disease, or unspecified chronic kidney disease; I48.92 Unspecified atrial flutter; G47.33 Obstructive sleep apnea (adult) (pediatric); E11.22 Type 2 diabetes mellitus with diabetic chronic kidney disease; E78.5 Hyperlipidemia, unspecified; E87.6 Hypokalemia; E83.42 Hypomagnesemia; K21.9 Gastro-esophageal reflux disease without esophagitis; I48.91 Unspecified atrial fibrillation; N18.30 Chronic kidney disease, stage 3 unspecified; M54.50 Low back pain, unspecified; G89.29 Other chronic pain; R13.10 Dysphagia, unspecified; M10.9 Gout, unspecified; F41.9 Anxiety disorder, unspecified; I25.10 Atherosclerotic heart disease of native coronary artery without angina pectoris; Z90.49 Acquired absence of other specified parts of digestive tract; Z90.79 Acquired absence of other genital organ(s); Z96.651 Presence of right artificial knee joint; Z96.643 Presence of artificial hip joint, bilateral; Z79.84 Long term (current) use of oral hypoglycemic drugs; Z79.899 Other long term (current) drug therapy; Z88.0 Allergy status to penicillin; Z95.0 Presence of cardiac pacemaker; Z88.8 Allergy status to other drugs, medicaments and biological substances; Z86.73 Personal history of transient ischemic attack (TIA), and cerebral infarction without residual deficits